=== PATIENT | female | born 1980 | race Caucasian/White ===

== ENCOUNTER 2016-10-07 17:18 | Emergency (ER) | payer SELFPAY ==
[~2016-10-07 17:18] MED LIST: CLIN150C14 PO; DIPH25CA58 IV; DOCU-109 PO; ENOX40DI SQ; FENTAN; IBUP800T19 PO; LORA0.5T96 PO; MUPI15CR TP; NICO1PAT21 TP; ONDA2VIA3 IV; PIPE3.375 IV; PROM25AM6 IV; SULF1TAB24 PO; VANC1PLA9 IV; [UNRECOGNIZED DRUG - CODE] IV; narcan IV
[2016-10-07 17:25] VITALS: BP 150/100
[2016-10-07] MEDS ORDERED: AMOX-260 PO (17:47)
--- NOTE | 2016-10-07 17:47 | PHYS DOC ---
Past History Past Medical History: Asthma Past Surgical History: Tonsillectomy, Other Alcohol Use: None Drug Use: Amphetamine, Marijuana, Methamphetamine, Opiates Adult General Chief Complaint Chief Complaint: EARACHE/EAR PAIN HPI HPI Patient is a 36-year-old female who presents ambulatory to the ED complaining of pain around her left ear and the left side of her jaw since yesterday. It hurts inside of her mouth and around her left ear, down into her left angle of her mandible area and the left anterior lateral neck. No fever or chills. No sore throat. She's not sure whether this might have started with a tooth. She also has some lesions of her face and some around her left ear specifically that she describes as "acne". They were not itchy. When they started they were red bumps and then had "white stuff" coming out of them. She has been picking at them. She's never had this before. No known allergies Review of Systems Review of Systems Constitutional: Denies fever or chills [] HENT: Denies nasal congestion or sore throat , otherwise as in history of present illness Integument: Facial skin lesions as in history of present illness, patient doesn' t know how long she's had them Allergies Allergies Allergies Coded Allergies Type Severity Reaction Last Updated Verified I S O L A T I O N *CONTACT* Allergy Unknown 10/11/15 Yes NKMA Allergy Unknown 10/11/15 Yes Physical Exam Physical Exam Constitutional: Well developed, well nourished, no acute distress, non-toxic appearance. Ambulatory, alert, mentating normally, no difficulty talking or swallowing. HENT: Normocephalic, atraumatic, numerous skin lesions on the forehead and around the hairline, worse on the left side, and scattered on the face, appeared to have been pimples that have been severely excoriated by the patient picking at them. None appears to be cellulitic or infected. There is tenderness generally in front of and around the left ear and down over the left angle of the jaw. No redness but there is mild swelling in this area. No palpable mass. Some tender submandibular lymphadenopathy. Intraorally, teeth are in reasonably good repair except one fractured molar on the mandible that the patient states is old. No evidence of acute dental abscess or other dental process on the maxillary or mandibular teeth. The parotid duct opening appears normal. The buccal surface on the left appears normal. Tongue, throat, oropharynx is without swelling, redness, or other abnormality. Left external ear, EAC, and TM are all normal. No evidence of otitis externa or media. Eyes: conjunctiva normal, no discharge. [] Neck: Normal range of motion, supple, no stridor. Mild tenderness of the left anterolateral neck due to cervical lymphadenopathy. No discrete individual large node. Skin: Warm, dry, no erythema, no rash. Facial skin as described. Extremities: No tenderness, no cyanosis, no clubbing, ROM intact, no edema. [] Neurologic: Alert and oriented X 3, normal motor function, normal sensory function, no focal deficits noted. [] EKG EKG [] Radiology/Procedures Radiology/Procedures [] Course & Med Decision Making Course & Med Decision Making Pertinent Labs and Imaging studies reviewed. (See chart for details) 36-year-old female with pain, tenderness, and mild swelling around her left ear and over the left lateral cheek, angle of the mandible, and down into her left anterolateral neck. There is mild swelling and tenderness but the area is really not red or warm. I am not finding any other focus of her symptoms other than numerous facial lesions that probably started as some type of an acne pimple about she has picked an excoriated them and I believe she has a early or mild soft tissue infection in this area although no overt cellulitis. We'll treat her with antibiotics. See instructions for plan. [] Dragon Disclaimer Dragon Disclaimer This chart was dictated in whole or in part using Voice Recognition software in a busy, high-work load, and often noisy Emergency Department environment. It may contain unintended and wholly unrecognized errors or omissions. Departure Departure: Impression: Primary Impression: Cellulitis Additional Impressions: Acneiform eruption Face pain Disposition: 01 HOME, SELF-CARE Condition: STABLE Referrals: PCP,NO (PCP) Patient Instructions: Cellulitis, [id number] Additional Instructions: I believe your pain and swelling is from some infection in the skin and lymph nodes from the "pimple" acne type lesions around your ear and face. Try to avoid picking or scratching the lesions. Use an [id number] acne wash to decrease the bacteria on your skin. If your swelling or pain gets worse, if you have a fever or chills, return to emergency. We will start you on amoxicillin, an antibiotic, that will take 2 or 3 days to start making it much better. Scripts Amoxicillin (AMOXICILLIN) 250 Mg Capsule 1 CAP PO TID for skin infection, swelling, #30 CAP Prov: ALICIA GEORGE MD 10/07/16 Problem Qualifiers ALICIA GEORGE MD Oct 07, 2016 17:47
[2016-10-07] MEDS ORDERED: AMOXICILLIN 250 MG CAPSULE PO ONE (18:30)
== END 2016-10-07 18:08 | disposition home or self-care (01) ==
LOC: ER 17:18
DX: L03.211 Cellulitis of face (principal); L27.0 Generalized skin eruption due to drugs and medicaments taken internally; J45.909 Unspecified asthma, uncomplicated; F15.10 Other stimulant abuse, uncomplicated; F12.10 Cannabis abuse, uncomplicated; F11.10 Opioid abuse, uncomplicated; Z91.041 Radiographic dye allergy status
CPT/HCPCS: 99283

== ENCOUNTER 2016-12-09 04:08 | Emergency (ER) | payer SELFPAY ==
[~2016-12-09] VITALS: Ht 162.6 cm; Wt 51.0 kg
[~2016-12-09 04:08] MED LIST changes: +AMOX-260 PO
[2016-12-09] MEDS ORDERED: ONDANSETRON PF 4 MG/2 ML VIAL. IV ONE (04:30)
[2016-12-09] MEDS ORDERED: KETOROLAC 30 MG/ML VIAL. IV ONE (04:30)
[2016-12-09] MEDS ORDERED: IV NORMAL SALINE 1,000ML 1,000 ML IV SCH (04:30)
[2016-12-09] MEDS ORDERED: HYDROmorphone PF 1 MG/ML DISP.SYRIN IM ONE (04:45)
[2016-12-09] MEDS ORDERED: KETOROLAC 60 MG/2 ML VIAL. IM ONE (04:45)
[2016-12-09 04:55] LABS: BASO # 0.1 x10^3/uL (0.0-0.2); BASO % 1 % (0-3); EOS % 0 % (0-3); HEMATOCRIT 45.9 % (36.0-47.0); HEMOGLOBIN 16.1 g/dL (12.0-15.5); LYMPH # 1.9 x10^3/uL (1.0-4.8); LYMPH % 18 % (24-48); MEAN CORPUSCULAR HEMOGLOBIN 30 pg (25-35); MEAN CORPUSCULAR HGB CONC 35 g/dL (31-37); MEAN CORPUSCULAR VOLUME 87 fL (79-100); MONO # 0.4 x10^3/uL (0.0-1.1); MONO % 4 % (0-9); NEUT % 77 % (31-73); PLATELET COUNT 288 x10^3/uL (140-400); RED BLOOD COUNT 5.31 x10^6/uL (3.50-5.40); RED CELL DISTRIBUTION WIDTH 13.3 % (11.5-14.5); WHITE BLOOD COUNT 10.4 x10^3/uL (4.0-11.0)
--- NOTE | 2016-12-09 04:59 | PHYS DOC ---
General Chief Complaint: ABDOMINAL PAIN Stated Complaint: ABDOMINAL PAIN Time Seen by MD: 04:12 Source: patient, old records Exam Limitations: clinical condition Problems: (LOCO CALVILLO DO) Time Seen by MD: 06:00 Problems: (PABLO KRUSE DO) History of Present Illness Initial Comments Pt is 36/F to ED via EMS c/o abdominal pain. Pt complains of severe right sided abdominal pain radiating to right flank. Pt writhing/screaming demanding pain medication, difficult historian appears altered c/w methamphetamine. Claims history of kidney stones says this feels like prior, right sided abdominal pain 10/10 sharp/severe with several episodes n/v. No reported diarrhea, no blood in emesis no fever/chills/CP/SOB/ diaphoresis. Pt denies substance abuse, EMS reports pt mother advised IVDU history and probable recent methamphetamine. She says she is having difficulty with producing urine denies dysuria/hematuria. Timing/Duration: 24 hours, constant Severity: severe Modifying Factors: improves with other Associated Symptoms: nausea/vomiting, other (LOCO CALVILLO DO) Allergies: Coded Allergies: I S O L A T I O N *CONTACT* (Verified Allergy, Unknown, 12/09/16) mrsa screen + NKMA (Verified Allergy, Unknown, 12/09/16) Past Medical History Medical History: asthma, other (septic PE, asthma, cellulitis, MRSA, septic joint, pneumonia, ) Surgical History: no surgical history, other (tonsillectomy, R knee) (LOCO CALVILLO DO) Family History Significant Family History: no pertinent family hx (LOCO CALVILLO DO) Social History Smoker: cigarettes Alcohol: occasionally Drugs: other (methamphetamine, opiates, THC, methadone, IVDU claims sobriety currently) (LOCO CALVILLO DO) Review of Systems Constitutional: denies chills, denies diaphoresis, denies fever, denies malaise Respiratory: denies cough, denies shortness of breath, denies wheezing Cardiovascular: denies chest pain, denies palpitations, denies syncope Gastrointestinal: abdominal pain, denies diarrhea, nausea, vomiting Genitourinary: see HPI Musculoskeletal: see HPI, denies joint swelling, denies neck pain Skin: see HPI Psychiatric/Neurological: denies headache, denies numbness, denies paresthesia , denies seizure, denies weakness Hematologic/Lymphatic: see HPI, denies easy bleeding, denies easy bruising ( LOCO CALVILLO DO) Physical Exam General Appearance: severe distress (appears older than stated age, writhing, screaming out, sobbing no diaphoresis/tears HR 70's), thin Eyes: bilateral eye normal inspection, bilateral eye PERRL, bilateral eye EOMI Ear, Nose, Throat: hearing grossly normal, normal ENT inspection (dry membranes ), normal pharynx Neck: non-tender, supple Respiratory: normal breath sounds, no respiratory distress Cardiovascular: normal peripheral pulses, regular rate, rhythm Gastrointestinal: soft (severe pain to light touch of skin globally, BS diminished no mass) Back: CVA tenderness (R), CVA tenderness (L) Extremities: normal range of motion, non-tender (track peterson), no pedal edema, no calf tenderness, pelvis stable Neurologic/Psychiatric: baccarat manager II-XII nml as tested, no motor/sensory deficits, alert, oriented x 3, other (screaming, uncooperative, no SI or obvious hallucinations) Skin: warm/dry (scabbed lesions b/l arms and face c/w meth, poor turgor) (LOCO CALVILLO DO) Orders, Labs, Meds Pt very difficult IV stick, initially dilaudid 1mg IM/toradol 60mg IM. At 0500 IV established, zofran 4mg/dilaudid 0.5mg IV given pt calms down somewhat. 0540: Pt now calm and sedated with meds VS remain stable. CT complete and pending, lab notifies that all submitted specimens hemolyzed and will have to be redrawn. Pt will be signed out to incoming ED physician at 0600 shift change , see that documentation for results/pt disposition. 0547: CBC resulted, WBC 10.4. UA 80 ket, 100mg/dl protein (LOCO CALVILLO DO) Orders, Labs, Meds 0625: Patient was seen and evaluated by myself. Patient was a sign out from Dr. Calvillo to follow up on CT scan and remaining blood work. Patient presented with severe abdominal pain with a history of drug abuse. Radiology findings: IMPRESSION: 1. No hydronephrosis. 2. Retrocecal appendix does not appear grossly dilated. There is some nonspecific haziness of the fat within the right lower quadrant the abdomen of unknown etiology but the appendix is not dilated to suggest appendicitis. 3. Cystic region within the right adnexa. Could be from causes such as dominant follicle or small cyst. 4. Subcutaneous induration of fat right flank posteriorly with some air within. Could be injection related or posttraumatic in nature. 5. Low-attenuation lesion of the right lobe of liver. Given the patient's age this is most likely benign in nature but if more complete characterization is desired focused ultrasound or MRI liver protocol could be obtained to further evaluate. MDM: After reviewing the chart, CC/HPI/PMH, physical exam, [lab results], [ radiological results], I do not believe the patient has an intra-abdominal emergency warranting further workup and/or admission at this time. Patient is made aware of the abnormal findings on CT scan and recommended follow-up with PCP for further evaluation of her liver and a colonoscopy. On reexamination patient's abdominal pain has subsided she is resting comfortably in the bed and was able to take Sprite and crackers. Patient is stable for discharge. Additional verbal discharge instructions were provided to the patient and that if symptoms get worse or any new symptoms arise that are worrisome to the patient she is to return to the emergency room immediately Diagnosis: 1. Abdominal pain (PABLO KRUSE DO) LOCO CALVILLO DO Dec 09, 2016 04:59 PABLO KRUSE DO Dec 09, 2016 06:59
[2016-12-09] MEDS ORDERED: HYDROmorphone PF 1 MG/ML DISP.SYRIN IV ONE (05:00)
[2016-12-09] MEDS ORDERED: cefTRIAXone SODIUM 1 GM VIAL IV ONE (05:05)
[2016-12-09] MEDS ORDERED: IV NORMAL SALINE 50ML 50 ML ONE (05:05)
[2016-12-09 05:18] LABS: AMORPHOUS SEDIMENT,UR PRESENT /HPF; BACTERIA,URINE FEW /HPF (0-FEW); BILIRUBIN,URINE NEG (NEG); CLARITY,URINE HAZY; COLOR,URINE STRAW; GLUCOSE,URINE NEG (NEG); HYALINE CASTS, URINE OCC /HPF; NITRITE,URINE NEG (NEG); RBC,URINE OCC /HPF (0-2); SQUAMOUS EPITHELIAL CELL,UR FEW /LPF; UROBILINOGEN,URINE 0.2 mg/dL (0.2 mg/dL); WBC,URINE OCC /HPF (0-4)
[2016-12-09 05:52] VITALS: BP 106/66
--- NOTE | 2016-12-09 05:59 | RAD ---
INDICATION: severe rt side pain COMPARISON: None. TECHNIQUE: Axial CT images were obtained through the abdomen and pelvis without intravenous contrast. Limited assessment of solid organ structures and vasculature secondary to lack of intravenous contrast. One or more of the following individualized dose reduction techniques were utilized for this examination: 1. Automated exposure control; 2. Adjustment of the mA and/or kV according to patient size; 3. Use of iterative reconstruction technique. FINDINGS: Chest Base: Partially imaged without gross abnormality. Vessels: No abdominal aortic aneurysm. Liver/Biliary: Approximately 17 mm low-attenuation lesion right lobe of the liver laterally. Pancreas: No peripancreatic edema. Spleen: Normal. Kidneys/Adrenal: No hydronephrosis. Bladder: Largely decompressed with catheter within. There is some air within the bladder likely from the indwelling catheter. GI: No free air. No bowel dilation to suggest obstruction. The suspected appendix is retrocecal and does not appear grossly enlarged. Small fat-containing umbilical hernia. There is some subcutaneous stranding and air seen at the right flank posteriorly, could be injection related or posttraumatic. Suspected cystic region right adnexa, 25 mm. Pars defects L5 with grade 1 anterolisthesis L5 on S1. IMPRESSION: 1. No hydronephrosis. 2. Retrocecal appendix does not appear grossly dilated. There is some nonspecific haziness of the fat within the right lower quadrant the abdomen of unknown etiology but the appendix is not dilated to suggest appendicitis. 3. Cystic region within the right adnexa. Could be from causes such as dominant follicle or small cyst. 4. Subcutaneous induration of fat right flank posteriorly with some air within. Could be injection related or posttraumatic in nature. 5. Low-attenuation lesion of the right lobe of liver. Given the patient's age this is most likely benign in nature but if more complete characterization is desired focused ultrasound or MRI liver protocol could be obtained to further evaluate. Electronically signed by: Chele Bowman MD (12/09/2016 5:56 AM) [facility]
[2016-12-09 06:29] LABS: BARBITURATES NEG (NEG); BENZODIAZEPINES POS (NEG); CANNABINOIDS POS (NEG); COCAINE NEG (NEG); METHADONE NEG (NEG); OPIATES POS (NEG); PHENCYCLIDINE NEG (NEG)
[2016-12-09 06:30] LABS: AMPHETAMINE/METHAMPHETAMINE POS (NEG)
[2016-12-09 07:15] LABS: ALBUMIN 3.4 g/dL (3.4-5.0); CALCIUM 8.3 mg/dL (8.5-10.1); CREATININE 0.8 mg/dL (0.6-1.0); GFR 81.6; POTASSIUM 3.8 mmol/L (3.5-5.1); TOTAL BILIRUBIN 0.2 mg/dL (0.2-1.0); TOTAL PROTEIN 6.9 g/dL (6.4-8.2)
[2016-12-10 03:38] LABS: HEMOGLOBIN ISTAT 12.9 gm/dL; POTASSIUM ISTAT 3.7 mmol/L (3.5-5.0)
== END 2016-12-09 08:05 | disposition home or self-care (01) ==
LOC: ER 04:08
DX: R10.9 Unspecified abdominal pain (principal); R11.2 Nausea with vomiting, unspecified; F17.210 Nicotine dependence, cigarettes, uncomplicated; J45.909 Unspecified asthma, uncomplicated; Z86.711 Personal history of pulmonary embolism; Z87.442 Personal history of urinary calculi; Z91.041 Radiographic dye allergy status
CPT/HCPCS: 36415; 74176; 80047; 80053; 80307; 81001; 83690; 85025; 96365; 96372; 96375; 99285; G0480; J0696; J1170; J1885; J2405; G0479; J7030

== ENCOUNTER 2018-07-12 16:12 | Emergency (ER) | payer OTHER ==
[~2018-07-12] VITALS: Ht 157.5 cm; Wt 49.9 kg
[2018-07-12] MEDS ORDERED: IV DEXTROSE 5% - 0.9 % NACL 1,000 ML IV ONE (16:45)
--- NOTE | 2018-07-12 16:53 | PHYS DOC ---
Past History Past Medical History: No Pertinent History (DENISE ADDISON DO) Past Surgical History: Tonsillectomy (DENISE ADDISON DO) Smoking: Cigarettes Alcohol Use: None Drug Use: Marijuana (DENISE ADDISON DO) Adult General Chief Complaint Chief Complaint: VOMITING IN HPI HPI Patient is a 38-year-old female presents with lower abdominal pain and vomiting that started last night. No blood in the emesis. No trauma. Patient is , uncertain as to her last menstrual period but it estimates at around 01 April 2018. She has had a positive test at department. She reports using marijuana last night/early this morning to help with the discomfort and the vomiting. She also reports that hot water helps with the discomfort. She denies any dysuria or hematuria. Denies any vaginal bleeding or discharge. Symptoms started when she was bearing down yesterday to have a bowel movement. No rectal bleeding is noted. Patient is 4 para 2012[] (DENISE ADDISON DO) Review of Systems Review of Systems Constitutional: Denies fever or chills [] Eyes: Denies change in visual acuity, redness, or eye pain [] HENT: Denies nasal congestion or sore throat [] Respiratory: Denies cough or shortness of breath [] Cardiovascular: No chest pain or palpitations[] GI: See history of present illness[] : Denies dysuria or hematuria [] Musculoskeletal: Denies back pain or joint pain [] Integument: Denies rash or skin lesions [] Neurologic: Denies headache, focal weakness or sensory changes [] Endocrine: Denies polyuria or polydipsia [] All other systems were reviewed and found to be within normal limits, except as documented in this note. (DENISE ADDISON DO) Current Medications Current Medications Current Medications Medications (Trade) Dose Ordered Sig/Eusebio Start Time Stop Time Status Last Admin Dose Admin Dextrose/Sodium Chloride 1,000 ml @ 0 mls/hr 1X ONCE 07/12/18 16:45 07/12/18 16:46 UNV Dicyclomine HCl (Bentyl) 20 mg 1X ONCE 07/12/18 16:45 07/12/18 16:46 UNV Metoclopramide HCl (Reglan Vial) 10 mg 1X ONCE 07/12/18 16:45 07/12/18 16:46 UNV ([facility]) Allergies Allergies Allergies Coded Allergies Type Severity Reaction Last Updated Verified I S O L A T I O N *CONTACT* Allergy Unknown 12/09/16 Yes NKMA Allergy Unknown 12/09/16 Yes ([facility]) Physical Exam Physical Exam Constitutional: Well developed, well nourished, mild to moderate discomfort, non-toxic appearance. [] HENT: Normocephalic, atraumatic, bilateral external ears normal, oropharynx moist, no oral exudates, nose normal. [] Eyes: PERRLA, EOMI, conjunctiva normal, no discharge. [] Neck: Normal range of motion, no tenderness, supple, no stridor. [] Cardiovascular:Heart rate regular rhythm, no murmur [] Lungs & Thorax: Bilateral breath sounds clear to auscultation [] Abdomen: Bowel sounds normal, soft, lower abdominal tenderness, no rebound, no guarding, no rigidity, able to sit up and lay back without any significant difficulty, no masses, no pulsatile masses. Pelvic exam performed with trigonometry tutor: External genitalia, [place]'s, urethra, and Bartholin's glands are all normal. Vaginal vault shows no blood in the vault. Cervix shows a parous os which is closed, no cervical motion tenderness, no discharge, no bleeding [] Skin: Warm, dry, no erythema, no rash. [] Back: No tenderness, no CVA tenderness. [] Extremities: No tenderness, no cyanosis, no clubbing, ROM intact, no edema. [] Neurologic: Alert and oriented X 3, normal motor function, normal sensory function, no focal deficits noted. [] Psychologic: Affect normal, judgement normal, mood normal. [] ([facility]) Current Patient Data Vital Signs Vital Signs Date Time Temp Pulse Resp B/P (MAP) Pulse Ox O2 Delivery O2 Flow Rate FiO2 07/12/18 16:12 98.3 88 24 100 Room Air ([facility]) EKG EKG [] ([facility]) Radiology/Procedures Radiology/Procedures [] ([facility]) Radiology/Procedures [address] [id number] IMAGING REPORT Signed PATIENT: SHUBHAM SHINYCE Bertin ACCOUNT: [id number] : 1980 LOCATION: ER AGE: 38 SEX: F EXAM STATUS: REG ER ORD. PHYSICIAN: DENISE ADDISON DO REASON: lower abdominal pain, PROCEDURE: OB <14 WKS Examination: OB <14 WKS History: Lower Abdominal Pain and vomiting in Comparison/Correlation: None Findings: OB ultrasound exam was performed. Marginal placental location is evident. Single living intrauterine gestation is present with heart rate of 175 bpm. No subchronic hemorrhage. No yolk sac seen. measurements include: Biparietal diameter: 2.1 cm corresponding to 13 weeks 2 days gestation. Femur length of 0.9 cm corresponding to 12 weeks 4 day gestation. Head circumference of 8 cm corresponding to 13 weeks 3 days. Abdominal circumference of 5.7 cm corresponding to 12 weeks 4 day. Age by 4 parameters corresponds to 13 weeks 0 day. EDC by average age is 12/27/2018. Gestational age by last menstrual period is 16 weeks 0 day. Cephalic index of 81.2. H/A ratio is 1.4. FL/BPD is 41.5. FL/ AC is 14.9. Normal quantity of amniotic fluid noted. Right adnexa is not visualized due to overlying bowel gas. Left ovary measures 3.3 cm x 3 x 1 cm x 2 cm. Cervical length of 3.5 cm is noted. IMPRESSION: Single living intrauterine gestation with ultrasound age of 13 weeks 0 days is 3 weeks less than age by last menstrual period. Correlate clinically. Placenta is at the margin of the cervical os. Electronically signed by: Aditya Vargas MD (07/12/2018 6:50 PM) [facility] (BROCK DOBBS MD) Course & Med Decision Making Course & Med Decision Making Pertinent Labs and Imaging studies reviewed. (See chart for details) ED course: Patient arrived, was placed in bed, and tolerated exam well. She was transported to ultrasound. She is currently in ultrasound is patient care is being endorsed to the oncoming night physician in the emergency department. Laboratory tests and imaging results are pending.[] (DENISE ADDISON DO) Course & Med Decision Making Re-exam= Resting comfortable. No ankle edema. DTR =2 patella and brachial. Denies hx of immunosuppression, IV drug use, STD's, Trauma. No recent intake bad food. No Travel. No specific ill contact -animal or human ect. Encourage pt. to stop smoking and illicit drug use. Pt. Nausea markedly improved prior discharge. Pt. to stay on clear fluids. x 24 hrs. Push fruit juices. Start vitamin or two [place] chewable with iron daily. No smoking or illicit drug use. Must follow up with OB at . US to day was sent to . Pt. must follow up pending cultures and labs. Impression: 1. Nausea / Vomiting- hyperemesis gravidarum 2. Anemia 12.8 hemoglobin 3. Elevated glucose 217 4. Elevated creatinine 1.6 5. Dehydration 6. Ultrasound= shows intrauterine fetus, heart rate 175 bpm- estimated 13 weeks. Estimated delivery 12-27-2018 (Sent to for follow up) 7. Marijuana, methamphetamine and tobacco use 8. Mother Blood type is A positive 9. Hx G4, T -3 Vag. delivery (BROCK DOBBS MD) Dragon Disclaimer Dragon Disclaimer This electronic medical record was generated, in whole or in part, using a voice recognition dictation system. (DENISE ADDISON DO) Departure Departure: Referrals: PCP,NO (PCP) Scripts Ondansetron Hcl (ZOFRAN) 8 Mg Tablet 8 MG PO qidp for active nausea and vomiting, #30 BOTTLE Prov: BROCK DOBBS MD 07/12/18 DENISE ADDISON DO Jul 12, 2018 16:53 BROCK DOBBS MD Jul 12, 2018 19:11
[2018-07-12 17:09] LABS: BARBITURATES NEG (NEG); BENZODIAZEPINES NEG (NEG); CANNABINOIDS POS (NEG); COCAINE NEG (NEG); METHADONE NEG (NEG); OPIATES NEG (NEG); PHENCYCLIDINE NEG (NEG)
[2018-07-12 17:11] LABS: BACTERIA,URINE FEW /HPF (0-FEW); BILIRUBIN,URINE NEG (NEG); CLARITY,URINE HAZY; COLOR,URINE YELLOW; GLUCOSE,URINE NEG (NEG); NITRITE,URINE NEG (NEG); RBC,URINE RARE /HPF (0-2); SQUAMOUS EPITHELIAL CELL,UR OCC /LPF; UROBILINOGEN,URINE 0.2 mg/dL (0.2 mg/dL)
[2018-07-12 17:12] LABS: AMORPHOUS SEDIMENT,UR PRESENT /HPF; HYALINE CASTS, URINE OCC /HPF
[2018-07-12 17:14] LABS: AMPHETAMINE/METHAMPHETAMINE POS (NEG)
[2018-07-12] MEDS ORDERED: METOCLOPRAMIDE HCL 10 MG/2 ML VIAL. IV ONE (17:15)
[2018-07-12] MEDS ORDERED: DICYCLOMINE HCL 20 MG TABLET PO ONE (17:15)
[2018-07-12 17:25] LABS: U PREG PATIENT POSITIVE (NEG)
--- NOTE | 2018-07-12 18:53 | RAD ---
Examination: OB <14 WKS History: Lower Abdominal Pain and vomiting in Comparison/Correlation: None Findings: OB ultrasound exam was performed. Marginal placental location is evident. Single living intrauterine gestation is present with heart rate of 175 bpm. No subchronic hemorrhage. No yolk sac seen. measurements include: Biparietal diameter: 2.1 cm corresponding to 13 weeks 2 days gestation. Femur length of 0.9 cm corresponding to 12 weeks 4 day gestation. Head circumference of 8 cm corresponding to 13 weeks 3 days. Abdominal circumference of 5.7 cm corresponding to 12 weeks 4 day. Age by 4 parameters corresponds to 13 weeks 0 day. EDC by average age is 12/27/2018. Gestational age by last menstrual period is 16 weeks 0 day. Cephalic index of 81.2. H/A ratio is 1.4. FL/BPD is 41.5. FL/ AC is 14.9. Normal quantity of amniotic fluid noted. Right adnexa is not visualized due to overlying bowel gas. Left ovary measures 3.3 cm x 3 x 1 cm x 2 cm. Cervical length of 3.5 cm is noted. IMPRESSION: Single living intrauterine gestation with ultrasound age of 13 weeks 0 days is 3 weeks less than age by last menstrual period. Correlate clinically. Placenta is at the margin of the cervical os. Electronically signed by: Aditya Vargas MD (07/12/2018 6:50 PM) [facility]
[2018-07-12] MEDS ORDERED: IV RINGERS SOLUTION,LACTATED 1,000 ML IV ONE (19:00)
[2018-07-12 19:21] LABS: BASO % 0 % (0-3); EOS % 0 % (0-3); HEMATOCRIT 33.6 % (36.0-47.0); HEMOGLOBIN 11.4 g/dL (12.0-15.5); LYMPH # 1.8 x10^3/uL (1.0-4.8); LYMPH % 21 % (24-48); MEAN CORPUSCULAR HEMOGLOBIN 29 pg (25-35); MEAN CORPUSCULAR HGB CONC 34 g/dL (31-37); MEAN CORPUSCULAR VOLUME 86 fL (79-100); MONO # 0.5 x10^3/uL (0.0-1.1); MONO % 6 % (0-9); NEUT # 6.3 x10^3uL (1.8-7.7); NEUT % 73 % (31-73); PLATELET COUNT 336 x10^3/uL (140-400); RED BLOOD COUNT 3.89 x10^6/uL (3.50-5.40); RED CELL DISTRIBUTION WIDTH 13.4 % (11.5-14.5); WHITE BLOOD COUNT 8.7 x10^3/uL (4.0-11.0)
[2018-07-12 19:36] LABS: ALBUMIN 3.2 g/dL (3.4-5.0); ALBUMIN/GLOBULIN RATIO 0.8 (1.0-1.7); CALCIUM 8.7 mg/dL (8.5-10.1); CREATININE 0.6 mg/dL (0.6-1.0); GFR 112.5; TOTAL BILIRUBIN 0.3 mg/dL (0.2-1.0); TOTAL PROTEIN 7.2 g/dL (6.4-8.2)
[2018-07-12] MEDS ORDERED: ONDA8TAB9 PO (19:50)
[2018-07-12 20:03] VITALS: BP 108/83
[2018-07-12] MEDS ORDERED: MAGNESIUM HYDROXIDE 2,400 MG/30 ML ORAL.SUSP. PO ONE (20:15)
[2018-07-12] MEDS ORDERED: ONDANSETRON PF 4 MG/2 ML VIAL. IV ONE (20:15)
[2018-07-12] MEDS ORDERED: POTASSIUM CHLORIDE 20 MEQ/15 ML ORAL LIQUID. PO ONE (20:15)
== END 2018-07-12 20:30 | disposition home or self-care (01) ==
LOC: ER 16:12
DX: O21.1 Hyperemesis gravidarum with metabolic disturbance (principal); E86.0 Dehydration; R79.82 Elevated C-reactive protein (CRP); O99.810 Abnormal glucose complicating pregnancy; O99.011 Anemia complicating pregnancy, first trimester; O99.321 Drug use complicating pregnancy, first trimester; F12.10 Cannabis abuse, uncomplicated; F15.90 Other stimulant use, unspecified, uncomplicated; O99.331 Smoking (tobacco) complicating pregnancy, first trimester; Z3A.13 13 weeks gestation of pregnancy; Z91.041 Radiographic dye allergy status
CPT/HCPCS: 36415; 76801; 80053; 80307; 81001; 81025; 84702; 85025; 86900; 86901; 87491; 87591; 96361; 96374; 96375; 99285; J2405; J2765; J7042; J7120; Q0111

== ENCOUNTER 2018-08-02 15:27 | Emergency (ER) | payer OTHER ==
[~2018-08-02] VITALS: Ht 157.5 cm; Wt 50.8 kg
[~2018-08-02 15:27] MED LIST changes: +ONDA8TAB9 PO
[2018-08-02 15:39] VITALS: BP 112/80
[2018-08-02] MEDS ORDERED: AMOX1TAB61 PO (15:58)
[2018-08-02] MEDS ORDERED: TRIA15CR2 TP (15:58)
--- NOTE | 2018-08-02 15:59 | PHYS DOC ---
Past History Past Medical History: No Pertinent History Past Surgical History: Tonsillectomy Smoking: Cigarettes Alcohol Use: Occasionally Drug Use: Marijuana Adult General Chief Complaint Chief Complaint: INSECT BITE [facility] HPI 38-year-old female presents with insect bite on her right shoulder and rash on her hands and feet. The patient noticed the rash yesterday. It is erythematous and pruritic on her hands and feet. The patient admits to falling asleep in the [place] yesterday. She does not believe she came in contact with poison sola or similar complaint, but is not certain. The rash is only on her hands and feet. She also noticed an insect bite on her posterior right shoulder. She is con cerned about infection. The patient is several weeks . She denies fever or chills. Review of Systems Review of Systems Constitutional: Denies fever or chills [] Eyes: Denies change in visual acuity, redness, or eye pain [] HENT: Denies nasal congestion or sore throat [] Respiratory: Denies cough or shortness of breath [] Cardiovascular: No additional information not addressed in HPI [] GI: Denies abdominal pain, nausea, vomiting, bloody stools or diarrhea [] : Denies dysuria or hematuria [] Musculoskeletal: Denies back pain or joint pain [] Integument: Rash, insect bite[] Neurologic: Denies headache, focal weakness or sensory changes [] Endocrine: Denies polyuria or polydipsia [] All other systems were reviewed and found to be within normal limits, except as documented in this note. Allergies Allergies Allergies Coded Allergies Type Severity Reaction Last Updated Verified I S O L A T I O N *CONTACT* Allergy Unknown 12/09/16 Yes NKMA Allergy Unknown 12/09/16 Yes Physical Exam Physical Exam Constitutional: Well developed, well nourished, no acute distress, non-toxic appearance. [] HENT: Normocephalic, atraumatic, bilateral external ears normal, oropharynx moist, no oral exudates, nose normal. [] Eyes: PERRLA, EOMI, conjunctiva normal, no discharge. [] Neck: Normal range of motion, no tenderness, supple, no stridor. [] Cardiovascular:Heart rate regular rhythm, no murmur [] Lungs & Thorax: Bilateral breath sounds clear to auscultation [] Abdomen: Bowel sounds normal, soft, no tenderness, no masses, no pulsatile masses. [] Skin: Fine, erythematous rash on the bilateral hands and dorsal feet. It is not hot to the touch. It appears consistent with contact dermatitis. Right, posterior shoulder with central scab with surrounding erythema of 3 cm diameter. No area of fluctuance[] Back: No tenderness, no CVA tenderness. [] Extremities: No tenderness, no cyanosis, no clubbing, ROM intact, no edema. [] Neurologic: Alert and oriented X 3, normal motor function, normal sensory function, no focal deficits noted. [] Psychologic: Affect normal, judgement normal, mood normal. [] EKG EKG [] Radiology/Procedures Radiology/Procedures [] Course & Med Decision Making Course & Med Decision Making Pertinent Labs and Imaging studies reviewed. (See chart for details) The patient's hands and feet appear to be some sort of contact dermatitis. Given her , I will only prescribe a topical steroid. The place on her back appears to be an insect bite it is erythematous, but not especially warm to touch. I will cover her with Augmentin just to be sure. [] Dragon Disclaimer Dragon Disclaimer This electronic medical record was generated, in whole or in part, using a voice recognition dictation system. Departure Departure: Impression: Primary Impression: Contact dermatitis Additional Impression: Cellulitis of back Disposition: 01 HOME, SELF-CARE Condition: STABLE Referrals: PCP,NO (PCP) Patient Instructions: Cellulitis, [id number], Contact Dermatitis, Bjiy-[id number] Scripts Triamcinolone Acetonide (TRIAMCINOLONE ACETONIDE) 15 Gm Cream..g. 1 KULDEEP TP BID PRN for ITCHING, #30 GM Apply to effected skin 2 times a day for up to 7 days, then stop. Prov: MARCELO LITTLEJOHN DO 08/02/18 Amoxicillin/Potassium Clav (AUGMENTIN 875-125 TABLET) 1 Each Tablet 1 TAB PO BID for cellulitis, #14 TAB Prov: MARCELO LITTLEJOHN DO 08/02/18 Problem Qualifiers Primary Impression: Contact dermatitis Contact dermatitis type: irritant Contact dermatitis trigger: unspecified trigger Qualified Codes: L24.9 - Irritant contact dermatitis, unspecified cause MARCELO LITTLEJOHN DO August 02, 2018 15:59
== END 2018-08-02 16:04 | disposition home or self-care (01) ==
LOC: ER 15:27
DX: O9A.211 Injury, poisoning and certain other consequences of external causes complicating pregnancy, first trimester (principal); S40.261A Insect bite (nonvenomous) of right shoulder, initial encounter; S60.562A Insect bite (nonvenomous) of left hand, initial encounter; S60.561A Insect bite (nonvenomous) of right hand, initial encounter; S90.862A Insect bite (nonvenomous), left foot, initial encounter; S90.861A Insect bite (nonvenomous), right foot, initial encounter; O99.711 Diseases of the skin and subcutaneous tissue complicating pregnancy, first trimester; L03.312 Cellulitis of back [any part except buttock and flank]; L25.9 Unspecified contact dermatitis, unspecified cause; O99.331 Smoking (tobacco) complicating pregnancy, first trimester; Z3A.00 Weeks of gestation of pregnancy not specified; Z91.041 Radiographic dye allergy status; W57.XXXA Bitten or stung by nonvenomous insect and other nonvenomous arthropods, initial encounter; Y93.89 Activity, other specified; Y92.89 Other specified places as the place of occurrence of the external cause; Y99.8 Other external cause status
CPT/HCPCS: 99283

== ENCOUNTER 2018-08-06 18:36 | Emergency (ER) | payer OTHER ==
[~2018-08-06] VITALS: Ht 157.5 cm; Wt 52.0 kg
[~2018-08-06 18:36] MED LIST changes: +AMOX1TAB61 PO; +TRIA15CR2 TP
[2018-08-06 18:40] VITALS: BP 122/68
--- NOTE | 2018-08-06 18:47 | ED.ADGEN ---
Past History Past Medical History: No Pertinent History Past Surgical History: Tonsillectomy Smoking: Cigarettes Alcohol Use: None Drug Use: Marijuana Adult General Chief Complaint Chief Complaint ".. I got this spider bite... and all ready on Augmentin.. but it is not getting better.. I was here Sat... and I am also .. HPI HPI Patient is a 38 year old female who presents with above hx and complaints of cellulitis and possible spider bite Rt. shoulder. Pt. currently on Augmentin. Pt. also . Patient has a long area of cellulitis/skin breakdown with Center necrosis 2 x 8 cm erythema. No adenopathy. Patient denies any history mental suppression does have a history of hepatitis C. Patient is on vitamins. Patient does continue to smoke. Patient does not follow-up primary care. Patient has had a tetanus vaccination within 10 years. Patient is concerned that she needs antivenom based on her review of Internet cases of brown recluse spider bites. Patient has had suspect MRSA in the past. Patient had 2 previous pregnancies and deliveries one is 15 years old and one is 19 years old. Review of Systems Review of Systems Constitutional: Denies fever or chills [] Eyes: Denies change in visual acuity, redness, or eye pain [] HENT: Denies nasal congestion or sore throat [] Respiratory: Denies cough or shortness of breath [] Cardiovascular: No additional information not addressed in HPI [] GI: Denies abdominal pain, nausea, vomiting, bloody stools or diarrhea [] : Denies dysuria or hematuria [] Musculoskeletal: Denies back pain or joint pain [] Integument: Requesting recheck of area cellulitis/spider bite Neurologic: Denies headache, focal weakness or sensory changes [] Endocrine: Denies polyuria or polydipsia [] All other systems were reviewed and found to be within normal limits, except as documented in this note. Family History Family History Noncontributory Current Medications Current Medications See nursing for home meds Allergies Allergies Allergies Coded Allergies Type Severity Reaction Last Updated Verified I S O L A T I O N *CONTACT* Allergy Unknown 12/09/16 Yes NKMA Allergy Unknown 12/09/16 Yes Physical Exam Physical Exam Constitutional: no acute distress, non-toxic appearance. [] HENT: Normocephalic, atraumatic, bilateral external ears normal, oropharynx moist, no oral exudates, nose normal. [] Eyes: PERRLA, EOMI, conjunctiva normal, no discharge. [] Neck: Normal range of motion, no tenderness, supple, no stridor. [] Cardiovascular:Heart rate regular rhythm, no murmur [] Lungs & Thorax: Bilateral breath sounds equal apex with scattered wheezes on auscultation [] Abdomen: Bowel sounds normal, soft, no tenderness, no masses, no pulsatile masses. [] Skin: Warm, dry, no erythema, no rash. Except area of cellulitis/spider bite right shoulder blade as per history of present illness Back: No tenderness, no CVA tenderness. [] Extremities: No tenderness, no cyanosis, no clubbing, ROM intact, no edema. [] Neurologic: Alert and oriented X 3, normal motor function, normal sensory function, no focal deficits noted. [] Psychologic: Affect anxious, judgement normal, mood normal. [] Current Patient Data Vital Signs Vital Signs Date Time Temp Pulse Resp B/P (MAP) Pulse Ox O2 Delivery O2 Flow Rate FiO2 08/06/18 18:40 98.4 96 18 97 Room Air EKG EKG [] Radiology/Procedures Radiology/Procedures [] Course & Med Decision Making Course & Med Decision Making Pertinent Labs and Imaging studies reviewed. (See chart for details). Pt. offer labs for further eval. Pt. currently declines labs. Recommend patient stop using alcohol on lesion. Continue Benadryl as needed for itching. Massage Polysporin into site 4 times a day. Wash with soap and water. Follow-up primary care. Take only Tylenol for discomfort. Follow-up with [facility] OB. Continue vitamin. Stop smoking. Return if any concerns. Complete current antibiotics. [] Final Impression Final Impression 1. Skin[]-lesion cellulitis/spider bite 2. Smoking 3. Gravid Dragon Disclaimer Dragon Disclaimer This electronic medical record was generated, in whole or in part, using a voice recognition dictation system. Discharge Summary Visit Information Final Diagnosis Problems Medical Problems: (1) Cellulitis Status: Acute (2) Spider bite Status: Acute Brief Hospital Course Allergies Allergies Coded Allergies Type Severity Reaction Last Updated Verified I S O L A T I O N *CONTACT* Allergy Unknown 12/09/16 Yes NKMA Allergy Unknown 12/09/16 Yes Vital Signs Vital Signs Date Time Temp Pulse Resp B/P (MAP) Pulse Ox O2 Delivery O2 Flow Rate FiO2 08/06/18 18:40 98.4 96 18 97 Room Air Brief Hospital Course Ms. Granado is a 38 old female who presented with cellulitis and suspect spider bite. Discharge Information Condition at Discharge: Stable Disposition/Orders: D/C to Home Dischare Medications Active Scripts Active Triamcinolone Acetonide 15 Gm Cream..g. 1 Kelsie TP BID PRN Apply to effected skin 2 times a day for up to 7 days, then stop. Augmentin 875-125 Tablet (Amoxicillin/Potassium Clav) 1 Each Tablet 1 Tab PO BID Zofran (Ondansetron Hcl) 8 Mg Tablet 8 Mg PO QIDP Amoxicillin 250 Mg Capsule 1 Cap PO TID Ibuprofen 800 Mg Tablet 1 Tab PO TID Reported Vanco 1 Gram/250 ml-0.9% NaCl (Vancomycin/0.9 % Sod Chloride) 1 Gm/250 Ml Plast..bag 1 Gm IV Q8HRS Phenergan (Promethazine Hcl) 25 Mg/1 Ml Ampul 12.5 Mg IV Q6HRS PRN Zosyn 3.375 Gram Vial (Piperacillin Sodium/Tazobactam) 3.375 Gm Vial 3.375 Gm IV Q6HRS Zofran (Ondansetron Hcl) 2 Mg/1 Ml Vial 4 Mg IV Q8HRS PRN NICODERM CQ 21mg (Nicotine) 1 Each Patch.td24 1 Patch TP DAILY [narcan] 0.4 Mg IV Q2MIN PRN Bactroban (Mupirocin Calcium) 15 Gm Cream..g. 1 Kelsie TP BID Ativan (Lorazepam) 0.5 Mg Tablet 0.5 Mg PO Q4DAYS PRN Fentanyl 1,500 Mcg/30 ml Syr (Fentanyl Citrate/Pf) 1,500 Mcg/30 Ml Magnet Valve Assembler.syring 600 Mcg IV CONT 600mcg/ 30ML Syringe Settings 10mcg/10 min with a max of 400 MCG in 4 hours [Fentan] Lovenox (Enoxaparin Sodium) 40 Mg/0.4 Ml Disp.syrin 40 Mg SQ DAILY Colace (Docusate Sodium) 100 Mg Capsule 100 Mg PO BID Benadryl (Diphenhydramine Hcl) 25 Mg Capsule 25 Mg IV Q6HRS Xuan Disclaimer This chart was dictated in whole or in part using Voice Recognition software in a busy, high-work load, and often noisy Emergency Department environment. It may contain unintended and wholly unrecognized errors or omissions. BROCK DOBBS MD August 06, 2018 18:47
== END 2018-08-06 19:22 | disposition home or self-care (01) ==
LOC: ER 18:36
DX: O99.719 Diseases of the skin and subcutaneous tissue complicating pregnancy, unspecified trimester (principal); T63.301A Toxic effect of unspecified spider venom, accidental (unintentional), initial encounter; L03.113 Cellulitis of right upper limb; O99.330 Smoking (tobacco) complicating pregnancy, unspecified trimester; Z91.041 Radiographic dye allergy status; Z3A.00 Weeks of gestation of pregnancy not specified; Y92.89 Other specified places as the place of occurrence of the external cause
CPT/HCPCS: 99281

== ENCOUNTER 2018-09-08 23:58 | Emergency (ER) | payer OTHER ==
[~2018-09-08] VITALS: Ht 157.5 cm; Wt 53.6 kg
--- NOTE | 2018-09-09 00:42 | ED.ADGEN ---
Past History Past Medical History: Other Past Surgical History: Tonsillectomy Smoking: Cigarettes Alcohol Use: None Drug Use: Marijuana Adult General Chief Complaint Chief Complaint Concern for STD exposure HPI HPI Patient is a 38-year-old female estimated 20 weeks gestation who presents with concern for possible STD exposure from boyfriend. Patient reports white discharge, itching and genitals. Patient has been tested during and has been negative for STDs but was diagnosed with folliculitis of her pubic region. Patient complains of malodor. No abdominal pain cramping, fever chills, nausea vomiting or sweats. [] Review of Systems Review of Systems Review symptoms as per history of present illness. All other systems were reviewed and found to be within normal limits, except as documented in this note. Current Medications Current Medications Current Medications Medications (Trade) Dose Ordered Sig/Eusebio Start Time Stop Time Status Last Admin Dose Admin Azithromycin (Zithromax) 1,000 mg 1X ONCE 09/09/18 01:00 09/09/18 01:01 Ceftriaxone Sodium (Rocephin Im) 250 mg 1X ONCE 09/09/18 01:00 09/09/18 01:01 Allergies Allergies Allergies Coded Allergies Type Severity Reaction Last Updated Verified I S O L A T I O N *CONTACT* Allergy Unknown 12/09/16 Yes NKMA Allergy Unknown 12/09/16 Yes Physical Exam Physical Exam Constitutional: Well developed, well nourished, no acute distress, non-toxic appearance. [] HENT: Normocephalic, atraumatic, bilateral external ears normal, oropharynx moist, no oral exudates, nose normal. [] Eyes: PERRLA, EOMI, conjunctiva normal, no discharge. [] Neck: Normal range of motion, no tenderness, supple, no stridor. [] Cardiovascular:Heart rate regular rhythm, no murmur [] Lungs & Thorax: Bilateral breath sounds clear to auscultation [] Abdomen: Bowel sounds normal, soft, no tenderness. [] Skin: Warm, dry, no erythema, no rash. [] Neurologic: Alert and oriented X 3, normal motor function, normal sensory function, no focal deficits noted. [] Psychologic: Affect normal, judgement normal, mood normal. [] EKG EKG [] Radiology/Procedures Radiology/Procedures [] Course & Med Decision Making Course & Med Decision Making Pertinent Labs and Imaging studies reviewed. (See chart for details) [Patient has follow-up appointment tomorrow with her CONTROL SYSTEMS TECHNICIAN. Rocephin, Zithromax given. UA to be run with microscopy for evaluation of bacterial vaginosis.] Final Impression Final Impression [1, STD exposure 2. Second trimester ] Dragon Disclaimer Dragon Disclaimer This electronic medical record was generated, in whole or in part, using a voice recognition dictation system. MARCELO GALARZA DO Sep 09, 2018 00:42
[2018-09-09] MEDS ORDERED: AZITHROMYCIN 250 MG TABLET. PO ONE (01:00)
[2018-09-09] MEDS ORDERED: cefTRIAXone IM 250 MG VIAL IM ONE (01:00)
[2018-09-09 01:13] LABS: BACTERIA,URINE FEW /HPF (0-FEW); BILIRUBIN,URINE NEG (NEG); CLARITY,URINE CLEAR; COLOR,URINE YELLOW; GLUCOSE,URINE NEG (NEG); NITRITE,URINE NEG (NEG); RBC,URINE 0 /HPF (0-2); SQUAMOUS EPITHELIAL CELL,UR MOD /LPF; UROBILINOGEN,URINE 1 mg/dL (0.2 mg/dL)
[2018-09-09 03:04] VITALS: BP 133/93
== END 2018-09-09 01:09 | disposition home or self-care (01) ==
LOC: ER 23:58
DX: O98.312 Other infections with a predominantly sexual mode of transmission complicating pregnancy, second trimester (principal); O99.332 Smoking (tobacco) complicating pregnancy, second trimester; Z91.041 Radiographic dye allergy status; Z3A.20 20 weeks gestation of pregnancy
CPT/HCPCS: 81001; 87086; 96372; 99284; J0456; J0696

== ENCOUNTER 2018-11-10 14:23 | Emergency (ER) | payer MEDICAID, OTHER ==
[~2018-11-10] VITALS: Ht 157.5 cm; Wt 54.4 kg
--- NOTE | 2018-11-10 15:11 | PHYS DOC ---
Past History Past Medical History: No Pertinent History Past Surgical History: No Surgical History Smoking: Cigarettes Alcohol Use: None Drug Use: Marijuana Adult General Chief Complaint Chief Complaint: SKIN RASH/ABSCESS [facility] Patient is a 38-year-old female who presents with complaint of itching and rash all over. Patient states that rash is been present for the last couple of weeks and she is not sure what the caused the rashes. She states that she has taken some Benadryl but has not been helping. She also indicates that she has been noticing some bruising on her legs that she is not sure why it started. She denies any fever. Patient does admit to marijuana use and over a pack a day of tobacco use. She is 7 months . She denies any abdominal pain/cramping and also denies vaginal bleeding.[] Review of Systems Review of Systems Constitutional: Denies fever or chills [] Respiratory: Denies cough or shortness of breath [] Cardiovascular: No additional information not addressed in HPI [] GI: Denies abdominal pain, nausea, vomiting or diarrhea [] Integument: Positive rash.[] Allergies Allergies Allergies Coded Allergies Type Severity Reaction Last Updated Verified I S O L A T I O N *CONTACT* Allergy Unknown 12/09/16 Yes NKMA Allergy Unknown 12/09/16 Yes Physical Exam Physical Exam Constitutional: Well developed, well nourished, no acute distress, non-toxic appearance. [] Cardiovascular:Heart rate regular rhythm, no murmur [] Lungs & Thorax: Bilateral breath sounds clear to auscultation [] Skin: Diffuse rash with raised, erythematous lesions with numerous excoriations from scratching. [] Current Patient Data Vital Signs Vital Signs Date Time Temp Pulse Resp B/P (MAP) Pulse Ox O2 Delivery O2 Flow Rate FiO2 11/10/18 14:51 98.2 105 24 97 Room Air EKG EKG [] Radiology/Procedures Radiology/Procedures [] Course & Med Decision Making Course & Med Decision Making Pertinent Labs and Imaging studies reviewed. (See chart for details) Dragon Disclaimer Dragon Disclaimer This electronic medical record was generated, in whole or in part, using a voice recognition dictation system. Departure Departure: Impression: Primary Impression: Methamphetamine abuse Additional Impressions: Rash and nonspecific skin eruption Disposition: 01 HOME, SELF-CARE Condition: STABLE Referrals: PCP,NO (PCP) Patient Instructions: Methamphetamine Abuse, Complications, , Rash Scripts Cephalexin (KEFLEX) 500 Mg Capsule 500 MG PO TID for infection, #30 TAB Prov: RAMON OCAMPO Jr. DO 11/10/18 Problem Qualifiers Additional Impressions: Weeks of gestation: unspecified Qualified Codes: Z34.90 - Encounter for supervision of normal , unspecified, unspecified trimester RAMON OCAMPO Jr. DO Nov 10, 2018 15:11
[2018-11-10] MEDS ORDERED: DEXAMETHASONE SOD PHOS 10 MG/ML VIAL ONE (15:20)
[2018-11-10] MEDS ORDERED: DEXAMETHASONE SOD PHOS 10 MG/ML VIAL IM ONE (15:30)
[2018-11-10 15:31] LABS: BASO % 1 % (0-3); EOS # 0.1 x10^3/uL (0.0-0.7); EOS % 1 % (0-3); HEMATOCRIT 35.5 % (36.0-47.0); HEMOGLOBIN 12.3 g/dL (12.0-15.5); LYMPH # 1.7 x10^3/uL (1.0-4.8); LYMPH % 25 % (24-48); MEAN CORPUSCULAR HEMOGLOBIN 32 pg (25-35); MEAN CORPUSCULAR HGB CONC 35 g/dL (31-37); MEAN CORPUSCULAR VOLUME 93 fL (79-100); MONO # 0.4 x10^3/uL (0.0-1.1); MONO % 6 % (0-9); NEUT # 4.7 x10^3uL (1.8-7.7); NEUT % 67 % (31-73); PLATELET COUNT 313 x10^3/uL (140-400); RED BLOOD COUNT 3.82 x10^6/uL (3.50-5.40); RED CELL DISTRIBUTION WIDTH 13.2 % (11.5-14.5); WHITE BLOOD COUNT 6.9 x10^3/uL (4.0-11.0)
[2018-11-10 15:44] LABS: ALBUMIN/GLOBULIN RATIO 0.6 (1.0-1.7); CALCIUM 8.7 mg/dL (8.5-10.1); CREATININE 0.8 mg/dL (0.6-1.0); GFR 80.7; POTASSIUM 3.5 mmol/L (3.5-5.1); TOTAL BILIRUBIN 0.4 mg/dL (0.2-1.0); TOTAL PROTEIN 7.8 g/dL (6.4-8.2)
[2018-11-10] MEDS ORDERED: diphenhydrAMINE HCL 25 MG CAPSULE PO ONE (16:15)
[2018-11-10 16:41] LABS: BARBITURATES NEG (NEG); BENZODIAZEPINES NEG (NEG); CANNABINOIDS POS (NEG); COCAINE NEG (NEG); METHADONE NEG (NEG); OPIATES NEG (NEG); PHENCYCLIDINE NEG (NEG)
[2018-11-10 16:43] LABS: AMPHETAMINE/METHAMPHETAMINE POS (NEG)
[2018-11-10 16:58] LABS: BACTERIA,URINE 0 /HPF (0-FEW); BILIRUBIN,URINE NEG (NEG); CLARITY,URINE CLEAR; COLOR,URINE YELLOW; GLUCOSE,URINE NEG (NEG); NITRITE,URINE NEG (NEG); RBC,URINE 0 /HPF (0-2); SQUAMOUS EPITHELIAL CELL,UR OCC /LPF; UROBILINOGEN,URINE 1 mg/dL (0.2 mg/dL); WBC,URINE OCC /HPF (0-4)
[2018-11-10] MEDS ORDERED: CEPH-264 PO (17:21)
[2018-11-10 17:29] VITALS: BP 150/89
== END 2018-11-10 17:30 | disposition home or self-care (01) ==
LOC: ER 14:23
DX: O99.713 Diseases of the skin and subcutaneous tissue complicating pregnancy, third trimester (principal); R21 Rash and other nonspecific skin eruption; O99.323 Drug use complicating pregnancy, third trimester; F15.10 Other stimulant abuse, uncomplicated; O99.333 Smoking (tobacco) complicating pregnancy, third trimester; Z91.041 Radiographic dye allergy status; Z3A.00 Weeks of gestation of pregnancy not specified
CPT/HCPCS: 36415; 80053; 80307; 81001; 85025; 96372; 99284; J1100; Q0163

== ENCOUNTER 2018-11-28 03:18 | Emergency (ER) | payer MEDICAID ==
[~2018-11-28] VITALS: Ht 157.5 cm; Wt 53.6 kg
[~2018-11-28 03:18] MED LIST changes: +CEPH-264 PO
[2018-11-28 03:20] VITALS: BP 131/83
[2018-11-28] MEDS ORDERED: PRED20TA PO (03:44)
[2018-11-28] MEDS ORDERED: PERM60CR12 TP (03:44)
--- NOTE | 2018-11-28 03:45 | PHYS DOC ---
Past History Past Medical History: MRSA, STD Past Surgical History: Tonsillectomy Smoking: Cigarettes Alcohol Use: None Drug Use: Amphetamine, Cocaine, Heroin, Marijuana, Methamphetamine, Opiates Adult General Chief Complaint Chief Complaint: SKIN RASH/ABSCESS HPI HPI patient is a 38-year-old female, with a history of polysubstance abuse, who is approximately 8 months , presents to the emergency department for evaluation of diffuse pruritus, which has been present for the past month. She denies any focal rash. She has tried Benadryl without improvement. She was seen in the emergency department about 3 weeks ago, had labs done which were reviewed, and was given an antibiotic, Keflex, without improvement in her symptoms. The man she shares a bedroom with does not have similar symptoms. There are no alleviating or exacerbating factors to her symptoms otherwise. She has also tried numerous [id number] creams without improvement in her symptoms. Review of Systems Review of Systems Constitutional: Denies fever or chills [] GI: Denies abdominal pain, nausea, vomiting, bloody stools or diarrhea [] : Denies dysuria or hematuria . Reports positive movement, denies vaginal bleeding or discharge.[] Musculoskeletal: Denies back pain or joint pain [] Integument: As per history of present illness[] Neurologic: Denies headache, focal weakness or sensory changes [] Endocrine: Denies polyuria or polydipsia [] Allergies Allergies Allergies Coded Allergies Type Severity Reaction Last Updated Verified I S O L A T I O N *CONTACT* Allergy Unknown 12/09/16 Yes NKMA Allergy Unknown 12/09/16 Yes Physical Exam Physical Exam PHYSICAL EXAM: CONSTITUTIONAL: Well developed, well nourished HEAD: normocephalic, atraumatic EENT: PERRL, EOMI. Conjunctivae normal color, sclerae non-icteric; moist mucous membranes. NECK: Supple, non-tender; no meningismus. LUNGS: Lungs CTA, breathing even and unlabored. Normal air movement. HEART: Regular rate and rhythm, no murmur CHEST: No deformity; non-tender ABDOMEN: The abdomen is soft, and non-tender, no masses or bruits. EXTREM: Normal ROM; no deformity, no calf tenderness. Normal pulses palpable in all extremities. There is no pedal edema. SKIN: There are a few scattered pustular lesions on the skin, there is diffuse pruritus, without any focal rash at the areas being scratched at this point, no diaphoresis NEURO: Alert; normal speech and cognition; CN's grossly intact; strength grossly intact without focal deficit. BACK: No CVA TTP. Current Patient Data Vital Signs Vital Signs Date Time Temp Pulse Resp B/P (MAP) Pulse Ox O2 Delivery O2 Flow Rate FiO2 11/28/18 03:20 98.2 94 18 98 Room Air EKG EKG [] Radiology/Procedures Radiology/Procedures [] Course & Med Decision Making Course & Med Decision Making I discussed the uncertain etiology of the patient's symptoms, we discussed trial of the scabicide, the need for follow-up with her OB, she has an appointment scheduled Saturday, and return precautions in detail. I will also try a brief course of steroids. Dragon Disclaimer Dragon Disclaimer This electronic medical record was generated, in whole or in part, using a voice recognition dictation system. Departure Departure: Impression: Primary Impression: Pruritus Additional Impression: Disposition: HOME, SELF-CARE Condition: STABLE Referrals: PCP,NO (PCP) Patient Instructions: Pruritus Scripts Permethrin (PERMETHRIN) 60 Gm Cream..g. 1 KULDEEP TP ONCE for -, #60 GM 1 Refill Prov: PEARL FAIR MD 11/28/18 Prednisone (PREDNISONE) 20 Mg Tablet 40 MG PO DAILY for - for 4 Days, #8 TAB Prov: PEARL FAIR MD 11/28/18 Problem Qualifiers PEALR FAIR MD Nov 28, 2018 03:45
[2018-11-28] MEDS ORDERED: predniSONE 20 MG TABLET PO ONE (04:00)
== END 2018-11-28 03:52 | disposition home or self-care (01) ==
LOC: ER 03:18
DX: O99.713 Diseases of the skin and subcutaneous tissue complicating pregnancy, third trimester (principal); L29.9 Pruritus, unspecified; L98.8 Other specified disorders of the skin and subcutaneous tissue; O99.333 Smoking (tobacco) complicating pregnancy, third trimester; Z91.041 Radiographic dye allergy status; Z3A.00 Weeks of gestation of pregnancy not specified
CPT/HCPCS: 99283; J7512

== ENCOUNTER 2019-10-03 15:57 | Emergency (ER) | payer SELFPAY ==
[~2019-10-03] VITALS: Ht 157.5 cm; Wt 53.6 kg
[~2019-10-03 15:57] MED LIST changes: +LORA0.5T21 PO; -LORA0.5T96 PO; +PERM60CR12 TP; +PRED20TA PO
[2019-10-03] MEDS ORDERED: cefTRIAXone IM 250 MG VIAL IM ONE (16:45)
[2019-10-03] MEDS ORDERED: AZITHROMYCIN 250 MG TABLET. PO ONE (16:45)
[2019-10-03] MEDS ORDERED: DEXAMETHASONE 4 MG TABLET PO ONE (16:55)
[2019-10-03 17:14] LABS: BILIRUBIN,URINE NEG (NEG); CLARITY,URINE HAZY; COLOR,URINE YELLOW; GLUCOSE,URINE NEG (NEG); NITRITE,URINE NEG (NEG); UROBILINOGEN,URINE 0.2 mg/dL (0.2 mg/dL)
[2019-10-03 17:15] LABS: BACTERIA,URINE FEW /HPF (0-FEW); SQUAMOUS EPITHELIAL CELL,UR FEW /LPF
[2019-10-03 18:07] LABS: U PREG PATIENT NEGATIVE (NEG)
[2019-10-03 18:28] VITALS: BP 153/102
[2019-10-03] MEDS ORDERED: HYDR-3165 PO (18:36)
[2019-10-03] MEDS ORDERED: ACYC400T PO (18:36)
[2019-10-03] MEDS ORDERED: AMOX1TAB61 PO (18:36)
[2019-10-03] MEDS ORDERED: CHLO15MO2 PO (18:36)
[2019-10-03] MEDS ORDERED: METR500T PO (18:37)
--- NOTE | 2019-10-03 18:37 | PHYS DOC ---
Past History Past Medical History: Hypertension, Hepatitis, MRSA, STD Past Surgical History: Tonsillectomy Smoking: Cigarettes Alcohol Use: None Drug Use: Amphetamine, Cocaine, Heroin, Marijuana, Methamphetamine, Opiates General Adult EDM: Chief Complaint: MULTIPLE COMPLAINTS HPI: HPI: 39 year old female presents with reports of toothache with known dental caries and painful lesions to vaginal area which have been ongoing for last 2-3 months. Denies fever/chills. Reports concern for possible STD. Denies trauma. Denies dysuria or hematuria. Denies . Review of Systems: Review of Systems: Constitutional: Denies fever or chills Eyes: Denies change in visual acuity, redness, or eye pain HENT: Denies nasal congestion or sore throat; reports toothache Respiratory: Denies cough or shortness of breath Cardiovascular: Denies chest pain or palpitations GI: Denies abdominal pain, nausea, vomiting, or diarrhea : Denies dysuria or hematuria Musculoskeletal: Denies back pain or joint pain Integument: Reports painful vaginal skin lesions Neurologic: Denies headache, focal weakness or sensory changes Complete systems were reviewed and found to be within normal limits, except as documented in this note. Current Medications: Current Meds: Current Medications Medications (Trade) Dose Ordered Sig/Eusebio Start Time Stop Time Status Last Admin Dose Admin Azithromycin (Zithromax) 1,000 mg 1X ONCE 10/03/19 16:45 10/03/19 16:49 DC Ceftriaxone Sodium (Rocephin Im) 250 mg 1X ONCE 10/03/19 16:45 10/03/19 16:49 DC Dexamethasone (Decadron) 10 mg 1X ONCE 10/03/19 16:55 10/03/19 16:56 DC Allergies: Allergies: Allergies Coded Allergies Type Severity Reaction Last Updated Verified I S O L A T I O N *CONTACT* Allergy Unknown 12/09/16 Yes NKMA Allergy Unknown 12/09/16 Yes Physical Exam: PE: Constitutional: Well developed, well nourished, no acute distress, non-toxic appearance HENT: Normocephalic, atraumatic, poor dentition throughout, multiple dental caries noted, no drainable abscess appreciated Eyes: Conjunctiva normal, no discharge Neck: Normal range of motion, no tenderness, supple, no meningeal signs Lungs & Thorax: Equal chest rise and fall, no respiratory distress Abdomen: Soft, no tenderness Pelvic: Diesel Dinkey Operator RN, small ulcers noted to vaginal area which are tender to palpation, slight vaginal discharge noted which is white, no CMT, no adnexal ten derness Skin: Warm, dry, no erythema, perineal rash noted Back: No tenderness, no CVA tenderness Extremities: No tenderness, ROM intact, no edema Neurologic: Alert and oriented X 3, no focal deficits noted Psychologic: Affect normal, judgement normal Current Patient Data: Labs: Laboratory Tests Test 10/03/19 16:28 Urine Collection Type Unknown Urine Color Yellow Urine Clarity Hazy Urine pH 6.0 Urine Specific Model >=1.030 Urine Protein Neg (NEG-TRACE) Urine Glucose (UA) Neg mg/dL (NEG) Urine Ketones (Stick) Neg mg/dL (NEG) Urine Blood Neg (NEG) Urine Nitrite Neg (NEG) Urine Bilirubin Neg (NEG) Urine Urobilinogen Dipstick 0.2 mg/dL (0.2 mg/dL) Urine Leukocyte Esterase Neg (NEG) Urine RBC 1-2 /HPF (0-2) Urine WBC 1-4 /HPF (0-4) Urine Squamous Epithelial Cells Few /LPF Urine Bacteria Few /HPF (0-FEW) Urine Mucus Slight /LPF Urine Test Negative (NEG) EKG: EKG: [] Radiology/Procedures: Radiology/Procedures: [] Course & Med Decision Making: Course & Med Decision Making Pertinent Lab studies reviewed. (See chart for details) Patient presents with multiple complaints including dental caries/toothache, scalp sores, and vaginal sores. Reports some vaginal discharge. Pelvic exam performed. Chlamydia/Gonorrhea cultures pending. Empiric antibiotics given. HSV cultures also pending. Antiviral initiated. Wet mount positive for BV. Rx for flagyl given. UA without acute process. Upreg negative. Patient stable for discharge home with outpatient follow-up with PCP/dentist/FAMILY PRACTICE PHYSICIAN ASSISTANT. Discussed findings and plan with patient, who acknowledges understanding and agreement. Xuan Disclaimer: Xuan Disclaimer: This electronic medical record was generated, in whole or in part, using a voice recognition dictation system. Departure Departure: Impression: Primary Impression: Dental caries Additional Impressions: Herpetic vesicle in vagina Concern about sexually transmitted disease in female without diagnosis Disposition: 01 HOME/RESIDENCE PRIOR TO ADM Condition: STABLE Referrals: PCP,DOROTHY (PCP) Patient Instructions: Bacterial Vaginosis, [id number], Dental Caries, Genital Herpes, Toothache-Brief Scripts Metronidazole (FLAGYL) 500 Mg Tablet 1 TAB PO BID for Bacterial vaginitis, #14 TAB Prov: NICO CADE DO 10/03/19 Hydrocodone Bit/Acetaminophen (NORCO 5-325 TABLET) 1 Each Tablet 0.5-1 TAB PO Q6HRS PRN for PAIN, #8 TAB Prov: NICO CAED DO 10/03/19 Acyclovir (ACYCLOVIR) 400 Mg Tablet 1 TAB PO TID for Herpetic lesions, #30 TAB Prov: NICO CADE DO 10/03/19 Chlorhexidine Gluconate (PERIDEX) 15 Ml Mouthwash 15 ML PO BID for dental infection for 7 Days, #473 ML 0 Refills Prov: NICO CADE DO 10/03/19 Amoxicillin/Potassium Clav (AUGMENTIN 875-125 TABLET) 1 Each Tablet 1 TAB PO BID for Dental caries for 7 Days, #14 TAB 0 Refills Prov: NICO CADE DO 10/03/19 Justification of Admission: Justification of Admission: Justification of Admission Dx: N/A NICO CADE DO Oct 03, 2019 18:37
[2019-10-06 22:07] LABS: CHLAMYDIA PROBE Negative (Negative)
[2019-10-11 11:01] LABS: HERPES SIMPLEX TYPE 1 Negative
[2019-10-11 11:03] LABS: HERPES SIMPLEX TYPE 2 Negative
== END 2019-10-03 18:46 | disposition home or self-care (01) ==
LOC: ER 15:57
DX: K02.9 Dental caries, unspecified (principal); Z20.2 Contact with and (suspected) exposure to infections with a predominantly sexual mode of transmission; B00.89 Other herpesviral infection; I10 Essential (primary) hypertension; F17.210 Nicotine dependence, cigarettes, uncomplicated; Z86.14 Personal history of Methicillin resistant Staphylococcus aureus infection; Z88.8 Allergy status to other drugs, medicaments and biological substances
CPT/HCPCS: 36415; 81001; 81025; 87491; 87529; 87591; 96372; 99284; J0456; J0696; J8540; Q0111; 86695; 86696; 99283

== ENCOUNTER 2019-10-31 19:16 | Emergency (ER) | payer SELFPAY ==
[~2019-10-31] VITALS: Ht 160 cm; Wt 47.7 kg
[2019-10-31 19:16] VITALS: BP 146/103
[~2019-10-31 19:16] MED LIST changes: +ACYC400T PO; +CHLO15MO2 PO; +HYDR-3165 PO; +METR500T PO
[2019-10-31] MEDS ORDERED: cefTRIAXone IM 250 MG VIAL IM ONE (19:45)
[2019-10-31] MEDS ORDERED: AZITHROMYCIN 250 MG TABLET. PO ONE (19:45)
--- NOTE | 2019-10-31 20:07 | PHYS DOC ---
Past History Past Medical History: No Pertinent History Additional Past Medical Histor: Endocarditis Past Surgical History: No Surgical History Smoking: Cigarettes Alcohol Use: Heavy Drug Use: Amphetamine, Cocaine, Heroin, Marijuana, Methamphetamine, Opiates General Adult EDM: Chief Complaint: SEXUALLY TRANSMITTED DISEASE HPI: HPI: A 39-year-old female presents to the emergency department for a STI check. She was contacted by her sexual partner to come to the emergency department to be checked for gonorrhea and chlamydia and syphilis. She complains of vaginal murky mucopurulent discharge is been going on for over a month now, but it has never been completely treated. She she has been given antibiotics for this in the past by other doctors but feels like it is never been completely treated. She denies any dysuria, dyspareunia, pruritus, vaginal dryness. She also complains of purulent discharge from her right eye. She has had no known contact of body fluids in her right eye. She is monogamous with one sexual partner, but notes that sexual partner has sex with multiple other individuals. She denies any sores in her vaginal or anus. She does have a history of STIs, but has never been diagnosed with herpes simplex virus or HPV. Denies abdominal pain. Review of Systems: Review of Systems: Constitutional: Denies fever or chills Eyes: Reports right eye mucopurulent discharge and right eye pain HENT: Denies nasal congestion or sore throat Respiratory: Denies cough or shortness of breath Cardiovascular: Denies chest pain or palpitations GI: Denies abdominal pain, nausea, or vomiting : Denies dysuria or hematuria, reports mucopurulent vaginal discharge Musculoskeletal: Denies back pain or joint pain Integument: Denies rash or skin lesions Neurologic: Denies headache, focal weakness or sensory changes Complete systems were reviewed and found to be within normal limits, except as documented in this note. Current Medications: Current Meds: Current Medications Medications (Trade) Dose Ordered Sig/Eusebio Start Time Stop Time Status Last Admin Dose Admin Azithromycin (Zithromax) 1,000 mg 1X ONCE 10/31/19 19:45 10/31/19 19:46 DC Ceftriaxone Sodium (Rocephin Im) 250 mg 1X ONCE 10/31/19 19:45 10/31/19 19:46 DC Allergies: Allergies: Allergies Coded Allergies Type Severity Reaction Last Updated Verified I S O L A T I O N *CONTACT* Allergy Unknown 12/09/16 Yes NKMA Allergy Unknown 10/31/19 Yes Physical Exam: PE: Constitutional: Well developed, well nourished, no acute distress, non-toxic appearance HENT: Normocephalic, atraumatic, oropharynx moist Eyes: PERRL, EOMI, conjunctiva normal, no discharge Neck: Normal range of motion, no tenderness, supple Lungs & Thorax: S rise and fall is equal bilateral, no respiratory distress Abdomen: Soft, no tenderness Skin: Warm, dry, no erythema, no rash Back: No tenderness, no CVA tenderness Extremities: No tenderness, ROM intact, no edema Neurologic: Alert and oriented X 3, normal motor function, normal sensory function, no focal deficits noted Psychologic: Affect normal, judgment normal Current Patient Data: Vital Signs: Vital Signs Date Time Temp Pulse Resp B/P (MAP) Pulse Ox O2 Delivery O2 Flow Rate FiO2 10/31/19 19:16 98.0 97 16 146/103 (117) 98 Room Air EKG: EKG: [] Radiology/Procedures: Radiology/Procedures: [] Course & Med Decision Making: Course & Med Decision Making Pertinent Labs and Imaging studies reviewed. (See chart for details) [] Dragon Disclaimer: [employer] Disclaimer: This electronic medical record was generated, in whole or in part, using a voice recognition dictation system. Departure Departure: Impression: Primary Impression: Bacterial vaginitis Additional Impression: Conjunctivitis Qualified Codes: H10.31 - Unspecified acute conjunctivitis, right eye Disposition: HOME/RESIDENCE PRIOR TO ADM Condition: STABLE Referrals: PCP,NO (PCP) Patient Instructions: Conjunctivitis (Viral and Bacterial), Vaginitis, [id number] Scripts Erythromycin Base (Erythromycin) 1 Gm Oint...g. 0.25 INCH OP QID for Conjunctivitis, #1 TUBE Prov: NICO CADE DO 10/31/19 Metronidazole (FLAGYL) 500 Mg Tablet 1 TAB PO BID for Vaginitis, #14 TAB Prov: NICO CADE DO 10/31/19 Justification of Admission: Justification of Admission: Justification of Admission Dx: N/A NICO CADE DO Oct 31, 2019 20:07
[2019-10-31] MEDS ORDERED: ERYTHROMYCIN 0.5% OPHTH OINTMENT 1GM TUBE. OD ONE (20:15)
[2019-10-31 20:27] LABS: BACTERIA,URINE FEW /HPF (0-FEW); BILIRUBIN,URINE NEG (NEG); CLARITY,URINE CLEAR; COLOR,URINE YELLOW; GLUCOSE,URINE NEG (NEG); NITRITE,URINE NEG (NEG); SQUAMOUS EPITHELIAL CELL,UR MOD /LPF; UROBILINOGEN,URINE 0.2 mg/dL (0.2 mg/dL)
[2019-10-31] MEDS ORDERED: METR500T PO (21:58)
[2019-10-31] MEDS ORDERED: ERYT1OIN6 OP (21:58)
[2019-10-31] MEDS ORDERED: metroNIDAZOLE 500 MG TABLET PO ONE (22:30)
[2019-11-02 22:07] LABS: CHLAMYDIA PROBE Negative (Negative)
== END 2019-10-31 22:15 | disposition home or self-care (01) ==
LOC: ER 19:16
DX: N76.0 Acute vaginitis (principal); B96.89 Other specified bacterial agents as the cause of diseases classified elsewhere; H10.31 Unspecified acute conjunctivitis, right eye; F17.210 Nicotine dependence, cigarettes, uncomplicated; F10.20 Alcohol dependence, uncomplicated; Z88.8 Allergy status to other drugs, medicaments and biological substances; Y90.9 Presence of alcohol in blood, level not specified
CPT/HCPCS: 36415; 81001; 81025; 86592; 87491; 87591; 96372; 99283; J0456; J0696; Q0111

== ENCOUNTER 2020-02-11 13:44 | Emergency (ER) | payer SELFPAY ==
[~2020-02-11] VITALS: Ht 160 cm; Wt 47.7 kg
[2020-02-11 13:44] VITALS: BP 141/86
[~2020-02-11 13:44] MED LIST changes: +ERYT1OIN6 OP
[2020-02-11] MEDS ORDERED: SMZ/TMP 800/160MG TABLET. PO ONE (14:15)
[2020-02-11] MEDS ORDERED: CEPHALEXIN 250 MG CAPSULE PO ONE (14:15)
--- NOTE | 2020-02-11 14:15 | PHYS DOC ---
Past History Past Medical History: No Pertinent History Additional Past Medical Histor: Endocarditis, IV drug use Past Surgical History: Tonsillectomy, Tubal ligation Smoking: Cigarettes Alcohol Use: Heavy Drug Use: Amphetamine, Cocaine, Heroin, Marijuana, Methamphetamine, Opiates Social History Narrative: IV drug use General Adult EDM: Chief Complaint: CELLULITIS HPI: HPI: History obtained from patient. Patient is a 40-year-old female with a history of IV heroin abuse who presents with complaint of left ankle pain and swelling. Patient states approximate 24 hours ago while using IV heroin in her left foot she missed her vein. She states she has noted increased redness and swelling to the area since then. She has no increase in warmth tenderness. States it is painful to walk. States it is painful to flex or extend her ankle joint. She states this is happened once before approximately 5 years ago and she almost lost her leg due to infection. Last used IV opiates approximately 12 hours prior to arrival. Denies fevers. Denies vomiting. Denies any pain. Denies any concern for retained needle. Denies chest pain or shortness of breath. Denies back pain. No other complaints. Review of Systems: Review of Systems: Constitutional: Denies fever or chills Eyes: Denies change in visual acuity HENT: Denies nasal congestion or sore throat Respiratory: Denies cough or shortness of breath Cardiovascular: Denies chest pain or edema GI: Denies abdominal pain, nausea, vomiting, bloody stools or diarrhea : Denies dysuria Musculoskeletal: Left ankle pain Integument: Denies rash Neurologic: Denies headache, focal weakness or sensory changes Endocrine: Denies polyuria or polydipsia Lymphatic: Denies swollen glands Psychiatric: Denies depression or anxiety Allergies: Allergies: Allergies Coded Allergies Type Severity Reaction Last Updated Verified I S O L A T I O N *CONTACT* Allergy Unknown 12/09/16 Yes NKMA Allergy Unknown 10/31/19 Yes Physical Exam: PE: Constitutional: Well developed, well nourished, no acute distress, non-toxic appearance. [] HENT: Normocephalic, atraumatic, bilateral external ears normal, oropharynx moist, no oral exudates, nose normal. [] Eyes: PERRLA, EOMI, conjunctiva normal, no discharge. [] Neck: Normal range of motion, no tenderness, supple, no stridor. [] Cardiovascular:Heart rate regular rhythm, no murmur [] Lungs & Thorax: Bilateral breath sounds clear to auscultation [] Abdomen: soft, no tenderness, no masses, no pulsatile masses. [] Skin: Warm, dry, no erythema, no rash. [] Back: No tenderness, no CVA tenderness. [] Extremities: Tenderness palpation of the medial aspect of the left ankle. Overlying redness and warmth noted. Induration appreciated. No crepitus palpated. No palpable areas of fluctuance. Full flexion and extension with some discomfort. +2-4 radial pulse on the left. Left lower extremity compartments soft without crepitus. Neurologic: Alert and oriented X 3, normal motor function, normal sensory function, no focal deficits noted. [] Psychologic: Affect normal, judgement normal, mood normal. [] Current Patient Data: Vital Signs: Vital Signs Date Time Temp Pulse Resp B/P (MAP) Pulse Ox O2 Delivery O2 Flow Rate FiO2 02/11/20 13:44 97.9 85 16 141/86 (104) 100 Room Air EKG: EKG: [] Radiology/Procedures: Radiology/Procedures: [][place] [id number] IMAGING REPORT Signed PATIENT: RIAN SHIN ACCOUNT: [id number] : 1980 LOCATION: ER AGE: 40 SEX: F EXAM STATUS: REG ER ORD. PHYSICIAN: ISMAEL GEORGES DO REASON: redness over medial L ankle. eval for retained needle PROCEDURE: ANKLE LEFT 3V Left ankle 3 views. HISTORY: Redness over medial left ankle 3 views were taken of the left ankle. There is medial soft tissue swelling. There is no fracture or bony destructive process. There is no other acute osseous abnormality. There is no opaque foreign body. IMPRESSION: 1. Soft tissue swelling. 2. No osseous abnormality. 3. No opaque foreign body. Electronically signed by: Manuel Hill MD (02/11/2020 2:31 PM) [facility] DICTATED AND SIGNED BY: MANUEL HILL MD DATE: 02/11/20 2645 CC: PCP,NO; TANQUARY,ISMAEL H DO ~MTH0 0 Heart Score: Risk Factors: Risk Factors: DM, Current or recent (<one month) smoker, HTN, HLP, family history of CAD, obesity. Risk Scores: Score 0 - 3: 2.5% MACE over next 6 weeks - Discharge Home Score 4 - 6: 20.3% MACE over next 6 weeks - Admit for Clinical Observation Score 7 - 10: 72.7% MACE over next 6 weeks - Early Invasive Strategies Course & Med Decision Making: Course & Med Decision Making Pertinent Labs and Imaging studies reviewed. (See chart for details) [] Patient is a 40-year-old female with a history of IV drug abuse who presents with chief complaint of redness and swelling to the medial aspect of her left ankle. She states that she missed a vein while trying to inject IV opiates approximate 24 hours prior to arrival. On exam patient does have clinical cellulitis overlying the left medial malleolus. Overall low suspicion for septic arthritis. She does have full flexion and extension range of motion actively and passively. Given the patient does have history of IV drug use plain film imaging was obtained to rule out retained foreign body soft tissue gas. This was negative. I did engage patient a lengthy discussion regarding her increased risk for deep space infection and possible joint involvement given her IV drug use history. I recommended obtaining laboratory analysis and potentially hospitalization for IV antibiotics as well as further CAT scan imaging. Patient states she would prefer to try oral antibiotics outpatient and does not want any further work-up performed in the emergency department.. I did explain that given her history of IV drug use and history of severe infection in this area the oral antibiotics might not treat her symptoms effectively. Patient does appear to be clinically sober. Alert and oriented x3. She does appear to have basic understanding of her health care needs and potential consequences. I did indicate that I recommend for her to be hospital ized for IV antibioticsand further work-up in the emergency department. At this time she is like to leave AGAINST MEDICAL ADVICE with outpatient antibiotics. She does understand this treatment may be under treating her symptoms. She will be given oral Bactrim and Keflex given presumed history of MRSA. She was able to ambulate emergency department that difficulty. Her vital signs remained stable. She was instructed to return emergency department in 24 to 40 hours have her wound reevaluated. Sooner return precautions discussed and understood. Instructed to follow-up with her primary care physician in the next 2 to 3 days. Stable for discharge home. Dragon Disclaimer: [employer] Disclaimer: This electronic medical record was generated, in whole or in part, using a voice recognition dictation system. Departure Departure: Impression: Primary Impression: Cellulitis Qualified Codes: L03.116 - Cellulitis of left lower limb Additional Impression: IVDU (intravenous drug user) Disposition: 07 AMA/ELOPED/LWBS Condition: STABLE Referrals: PCP,DOROTHY (PCP) MUNIRA DEGROOT MD Patient Instructions: Cellulitis, Septic Arthritis Additional Instructions: Please return emergency department any point should he want to continue treatment or work-up. Please return emergency department the next 1224 hrs. for wound reevaluation. Scripts Cephalexin (KEFLEX) 500 Mg Capsule 500 MG PO QID for cellulitis for 10 Days, #40 TAB Prov: ISMAEL GEORGES DO 02/11/20 Sulfamethoxazole/Trimethoprim (BACTRIM DS TABLET) 1 Each Tablet 1 TAB PO BID for cellulitis for 10 Days, #20 TAB 0 Refills Prov: ISMAEL GEORGES DO 02/11/20 ISMAEL GEORGES DO Feb 11, 2020 14:15
--- NOTE | 2020-02-11 14:33 | RAD ---
Left ankle 3 views. HISTORY: Redness over medial left ankle 3 views were taken of the left ankle. There is medial soft tissue swelling. There is no fracture or bony destructive process. There is no other acute osseous abnormality. There is no opaque foreign body. IMPRESSION: 1. Soft tissue swelling. 2. No osseous abnormality. 3. No opaque foreign body. Electronically signed by: Manuel Hill MD (02/11/2020 2:31 PM) [facility]
[2020-02-11] MEDS ORDERED: SULF1TAB24 PO (15:00)
[2020-02-11] MEDS ORDERED: CEPH-264 PO (15:00)
== END 2020-02-11 15:10 | disposition left against medical advice (07) ==
LOC: ER 13:44
DX: L03.116 Cellulitis of left lower limb (principal); R60.0 Localized edema; M25.572 Pain in left ankle and joints of left foot; F17.210 Nicotine dependence, cigarettes, uncomplicated; F12.90 Cannabis use, unspecified, uncomplicated; F14.90 Cocaine use, unspecified, uncomplicated; F19.90 Other psychoactive substance use, unspecified, uncomplicated; Z98.51 Tubal ligation status; Z88.8 Allergy status to other drugs, medicaments and biological substances
CPT/HCPCS: 73610; 99283

== ENCOUNTER 2020-05-24 19:56 | Emergency (ER) | payer SELFPAY ==
[~2020-05-24] VITALS: Ht 160 cm; Wt 47.7 kg
[2020-05-24 19:56] VITALS: BP 143/89
[~2020-05-24 19:56] MED LIST changes: -CLIN150C14 PO; +CLIN150C15 PO
--- NOTE | 2020-05-24 20:05 | PHYS DOC ---
Past History Past Medical History: No Pertinent History Additional Past Medical Histor: Endocarditis, IV drug use (BROCK DOBBS MD) Past Surgical History: Tonsillectomy, Tubal ligation (BROCK DOBBS MD) Smoking: Cigarettes Alcohol Use: Heavy Drug Use: Amphetamine, Cocaine, Heroin, Marijuana, Methamphetamine, Opiates (BROCK DOBBS MD) General Adult HPI: HPI: Patient is a 40 year old female who presents with above hx and complaints of scraping paint and got in into her rt. eye. See Allan report for details. (BROCK DOBBS MD) HPI: Patient is a 40-year-old female presents to emergency room after getting paint scrapings in her right eye. Patient states she was scraping the wall and felt like something fell into her eye. Patient states that she splashed some water into her eye after it happened still feels like it irritated. Patient denies pain. Patient denies blurry vision. Denies health history. (YUMIKO LÓPEZ APRN) Review of Systems: Review of Systems: Constitutional: Eyes: Complaints of Rt. eye injury. See note by Allan (BROCK DOBBS MD) Review of Systems: Constitutional: Denies fever or chills Eyes: Denies change in visual acuity, irritation to right eye HENT: Denies nasal congestion or sore throat Respiratory: Denies cough or shortness of breath Cardiovascular: Denies chest pain or edema GI: Denies abdominal pain, nausea, vomiting, bloody stools or diarrhea : Denies dysuria Musculoskeletal: Reports right-sided mid back pain Integument: Denies rash Neurologic: Denies headache, focal weakness or sensory changes Endocrine: Denies polyuria or polydipsia Lymphatic: Denies swollen glands Psychiatric: Denies depression or anxiety (YUMIKO LÓPEZ APRN) Allergies: Allergies: Allergies Coded Allergies Type Severity Reaction Last Updated Verified I S O L A T I O N *CONTACT* Allergy Unknown 12/09/16 Yes NKMA Allergy Unknown 10/31/19 Yes (BROCK DOBBS MD) Physical Exam: PE: See Allan note (BROCK DOBBS MD) PE: Constitutional: Well developed, well nourished, no acute distress, non-toxic appearance. [] HENT: Normocephalic, atraumatic, bilateral external ears normal, oropharynx moist, no oral exudates, nose normal. [] Eyes: PERRLA, conjunctiva normal, no discharge. [] Neck: Normal range of motion, no tenderness, supple, no stridor. [] Cardiovascular:Heart rate regular rhythm, no murmur [] Lungs & Thorax: Bilateral breath sounds clear to auscultation [] Abdomen: Bowel sounds normal, soft, no tenderness, no masses, no pulsatile masses. [] Skin: Warm, dry, no erythema, no rash. [] Back: Right-sided tenderness, no CVA tenderness. [] Extremities: No tenderness, no cyanosis, no clubbing, ROM intact, no edema. [] Neurologic: Alert and oriented X 3, normal motor function, normal sensory function, no focal deficits noted. [] Psychologic: Affect normal, judgement normal, mood normal. [] (YUMIKO LÓPEZ APRN) EKG: EKG: [] (BROCK DOBBS MD) Radiology/Procedures: Radiology/Procedures: [] (BROCK DOBBS MD) Heart Score: Risk Factors: Risk Factors: DM, Current or recent (<one month) smoker, HTN, HLP, family history of CAD, obesity. Risk Scores: Score 0 - 3: 2.5% MACE over next 6 weeks - Discharge Home Score 4 - 6: 20.3% MACE over next 6 weeks - Admit for Clinical Observation Score 7 - 10: 72.7% MACE over next 6 weeks - Early Invasive Strategies (BROCK DOBBS MD) C/O Chest Pain: No (YUMIKO LÓPEZ APRN) Course & Med Decision Making: Course & Med Decision Making Pertinent Labs and Imaging studies reviewed. (See chart for details) \See Allan note [] (BROCK DOBBS MD) Course & Med Decision Making Patient was screaming pain at a full wall when she felt like paint scraping spl int to her right eye. Patient denies visual changes. Fluorescein ordered. (YUMIKO LÓPEZ APRN) Dragon Disclaimer: Dragon Disclaimer: This electronic medical record was generated, in whole or in part, using a voice recognition dictation system. (BROCK DOBBS MD) Departure Departure: Referrals: ZARA CHARLES DO (PCP) BROCK DOBBS MD 9, 2021 20:05 YUMIKO LÓPEZ APRN May 24, 2020 20:14
[2020-05-24] MEDS: FLUORESCEIN 1MG EYE STRIP. OD ONE (20:30)
[2020-05-24] MEDS: FLUORESCEIN 1MG EYE STRIP. OU ONE (20:30)
[2020-05-24] MEDS: IV NORMAL SALINE 500ML 500 ML IV ONE (20:30)
[2020-05-24] MEDS: ERYTHROMYCIN 0.5% OPHTH OINTMENT 1GM TUBE. OU ONE (20:31)
[2020-05-24] MEDS: TETRACAINE 0.5% OPHTH SOLUTION 4ML BOTTLE. OU ONE (20:31)
== END 2020-05-24 21:45 | disposition home or self-care (01) ==
LOC: ER 19:56
DX: H57.89 Other specified disorders of eye and adnexa (principal); M54.89 Other dorsalgia; F17.210 Nicotine dependence, cigarettes, uncomplicated; F10.20 Alcohol dependence, uncomplicated; Z91.041 Radiographic dye allergy status; Y90.9 Presence of alcohol in blood, level not specified
CPT/HCPCS: 99283; J7040

== ENCOUNTER 2020-07-17 21:12 | Emergency (ER) | payer SELFPAY ==
[~2020-07-17] VITALS: Ht 157.5 cm; Wt 52.6 kg
[~2020-07-17 21:12] MED LIST changes: +ACYC-12 PO; -ACYC400T PO
--- NOTE | 2020-07-17 21:34 | PHYS DOC ---
Past History Past Medical History: Anxiety, Arthritis, COPD, Fibromyalgia, Hypertension Additional Past Medical Histor: Endocarditis, IV drug use Past Medical History Polysubstance Abuse, Narcotic dependence Past Surgical History: Tonsillectomy, Tubal ligation Additional Past Surgical Histo: right knee, left foot Smoking: Cigarettes Alcohol Use: Rarely Drug Use: Amphetamine, Cocaine, Heroin, Marijuana, Methamphetamine, Opiates General Adult EDM: Chief Complaint: SHORTNESS OF BREATH HPI: HPI: ".. I feel like shit..short of breath.. and hurt everywhere.. some generalize chest pain....hurts to breath...". " I am wheezing.. coughing.. just fell like crap..." Patient is a 40 year old FEMALE who presents with above hx and complaints of chest pain, cough, wheezing, pleuritic complaint and dyspnea. Pt had symptoms the past couple day. Does have history of chronic pain. Patient does have a history of IV drug use. Did use approximate $20 . of Herion IV about 1600 for pain and control of her narcotic cravings. Patient is tachycardic and hypertensive on arrival. Patient has past history of polysubstance abuse with narcotic dependence. 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 Patient does continue to smoke tobacco. Patient denies any specific ill contacts. No recent travel. Has had some subjective feelings of fever and chills. Currently complaining of generalized myalgia arthralgia and malaise. Patient normally follows with Dr. Charles. Review of Systems: Review of Systems: Constitutional: Subjective fever or chills Eyes: Denies change in visual acuity HENT: Denies nasal congestion or sore throat Respiratory: History of a nonproductive cough and shortness of breath Cardiovascular: Complaints of chest pain and tachycardia GI: Generalized abdominal pain , nausea, vomiting, and diarrhea when she does get some narcotics : Denies dysuria Musculoskeletal: Complains of generalized myalgia and joint pain Integument: Denies rash Neurologic: Denies headache, focal weakness or sensory changes Endocrine: Denies polyuria or polydipsia Lymphatic: Denies swollen glands Psychiatric: Denies depression or anxiety Family History: Family History: Noncontributory to presentation Current Medications: Current Meds: See nursing for home meds Allergies: Allergies: Allergies Coded Allergies Type Severity Reaction Last Updated Verified NKMA Allergy Unknown 10/31/19 Yes Physical Exam: PE: Constitutional: Moderately acute distress, ill in appearance. [] HENT: Normocephalic, atraumatic, bilateral external ears normal, oropharynx dry, no oral exudates, nose normal. [] Eyes: PERRLA, EOMI, conjunctiva normal, no discharge. [] Neck: Normal range of motion, no tenderness, supple, no stridor. [] Cardiovascular: Tachycardia heart rate regular rhythm, no murmur [. Bedside] monitor shows a sinus tachycardia Lungs & Thorax: Bilateral breath sounds equal apex with scattered wheezing, rhonchi as crackles on auscultation [] Abdomen: Bowel sounds decreased, soft, no tenderness, no masses, no pulsatile masses. Mild distention. Old surgical scar Skin: Warm, dry, no erythema, no rash. Poor turgor. Old IV track peterson Back: No tenderness, no CVA tenderness. [] Extremities: No tenderness, no cyanosis, no clubbing, ROM intact, no edema. No cording appreciated Neurologic: Alert and oriented X 3, normal motor function, normal sensory function, no focal deficits noted. [] Psychologic: Affect anxious judgement normal, mood normal. [] Current Patient Data: Vital Signs: Vital Signs Date Time Temp Pulse Resp B/P (MAP) Pulse Ox O2 Delivery O2 Flow Rate FiO2 07/17/20 21:20 98.1 90 16 128/76 (93) 100 Room Air EKG: EKG: My interpretation EKG shows a sinus rhythm at 94 bpm. No findings of acute STEMI or contralateral changes [] Radiology/Procedures: Radiology/Procedures: [[address] [address] IMAGING REPORT Signed PATIENT: RIAN SHIN ACCOUNT: [id number] : 1980 LOCATION: ER AGE: 40 SEX: F EXAM STATUS: REG ER ORD. PHYSICIAN: BROCK DOBBS MD REASON: cp PROCEDURE: CHEST PA & LATERAL INDICATION: Reason: cp / Spl. Instructions: / History: COMPARISON: November 2015 FINDINGS: 2 view of chest obtained. Cardiac silhouette unremarkable. Appearance the lungs is similar to prior without a new region of consolidation. IMPRESSION: * No major change from prior. Electronically signed by: Vince Bowman MD (07/18/2020 1:14 AM) [id number] DICTATED AND SIGNED BY: VINCE BOWMAN MD DATE: 07/18/20 0113 CC: BROCK DOBBS MD; ZARA CHARLES DO ~MTH0 0 ][place] [address] IMAGING REPORT Signed PATIENT: RIAN SHIN ACCOUNT: [id number] : 1980 LOCATION: ER AGE: 40 SEX: F EXAM STATUS: REG ER ORD. PHYSICIAN: BROCK DOBBS MD REASON: cp, hx pericarditis, endo carditis, pleuretic cp, OMNI 350, 75ml PROCEDURE: CT ANGIOGRAPHY CHEST INDICATION: Reason: cp, hx pericarditis, endo carditis, pleuretic cp, OMNI 350, 75ml / Spl. Instructions: / History: COMPARISON: November 2015 TECHNIQUE: Axial CT images obtained through the chest. Intravenous contrast utilized. Angiogram 3D images processed per protocol. One or more of the following individualized dose reduction techniques were u tilized for this examination: 1. Automated exposure control; 2. Adjustment of the mA and/or kV according to patient size; 3. Use of iterative reconstruction technique. FINDINGS: Mild cystic changes lungs. There are multifocal masslike opacities in the bilateral lungs. For example within the lingula region measuring up to about 16 mm with surrounding groundglass opacity. At the right upper lung medially there is a masslike opacity within the lung abutting the mediastinum measuring up to about 3 cm. Adj acent interstitial thickening and groundglass opacity. Partially visualized liver appears prominent in size with enlarged spleen partially seen as well. Soft tissue density anterior mediastinum commonly from thymic tissue. There is also some enlarged lymph nodes within the mediastinum. Scattered lymph nodes are seen in the axilla as well. No evidence of thoracic aortic aneurysm with portion of ascending thoracic aorta limited by motion. Enlarged lymph nodes in the mediastinum and hilum. For example right pretracheal region conglomerate measuring up to about 27 x 13 mm. No pulmonary embolus is identified IMPRESSION: No definite pulmonary embolus. Masslike opacities in the bilateral lungs. Could be infectious in nature with alternative causes including inflammatory etiology with neoplastic causes not excluded therefore follow-up will be needed to ensure that this appropriately resolves to exclude neoplasm. Lymphadenopathy at the mediastinum and hilum. Could be reactive or neoplastic and follow-up will be needed to ensure no growth. Electronically signed by: Vince Bowman MD (07/18/2020 1:34 AM) [id number] DICTATED AND SIGNED BY: VINCE BOWMAN MD DATE: 07/18/20118 CC: BROCK DOBBS MD; ZARA CHARLES DO ~MTH0 0 Heart Score: C/O Chest Pain: Yes HEART Score for Chest Pain: HEART Score for Chest Pain Response (Comments) Value History Slighlty/Non-Suspicious 0 ECG Normal 0 Age < 45 0 Risk Factors 1 or 2 Risk Factors 1 Troponin < Normal Limit 0 Total 1 Risk Factors: Risk Factors: DM, Current or recent (<one month) smoker, HTN, HLP, family history of CAD, obesity. Risk Scores: Score 0 - 3: 2.5% MACE over next 6 weeks - Discharge Home Score 4 - 6: 20.3% MACE over next 6 weeks - Admit for Clinical Observation Score 7 - 10: 72.7% MACE over next 6 weeks - Early Invasive Strategies Course & Med Decision Making: Course & Med Decision Making Pertinent Labs and Imaging studies reviewed. (See chart for details) Discussed presentation, testing and treatment plan with . Will accept pt. in transfer to [facility]. Pulmonary consults and cardiology consults. Suspect a possible reactivation of her endocarditis. Consider adding Vanco- Hx of prior MRSA while awaiting transfer once Rocephin in. Biopsy of adenopathy may be needed to make a definitive diagnosis-infectious versus neoplastic versus inflammatory. May need port or pic line for access. Critical care= 90 min. Impression: 1. Chest pain 2. Grossly abnormal CT findings of adenopathy-suspect infectious etiology 3. Elevated leukocytosis 11.9 4. Elevated CRP 80 5. Polysubstance abuse-narcotic dependent [] Dragon Disclaimer: Dragon Disclaimer: This electronic medical record was generated, in whole or in part, using a voice recognition dictation system. Departure Departure: Referrals: ZARA CHARLES DO (PCP) Xuan Disclaimer This chart was dictated in whole or in part using Voice Recognition software in a busy, high-work load, and often noisy Emergency Department environment. It may contain unintended and wholly unrecognized errors or omissions. BROCK DOBBS MD July 17, 2020 21:34
[2020-07-17] MEDS ORDERED: IPRATRPIUM/ALBUTEROL 0.5/2.5MG 3 ML NEBU. NEB ONE (22:00)
[2020-07-17] MEDS ORDERED: IV RINGERS SOLUTION,LACTATED 1,000 ML IV SCH (22:00)
[2020-07-17] MEDS ORDERED: ACETAMINOPHEN 500 MG TABLET PO ONE (22:00)
[2020-07-17] MEDS ORDERED: ASPIRIN CHEWABLE 81 MG TABLET. PO ONE (22:00)
[2020-07-17] MEDS ORDERED: AZITHROMYCIN 250 MG TABLET. PO ONE (22:00)
[2020-07-17] MEDS ORDERED: IOHEXOL 350 MG/ML 100 ML VIAL. IV ONE (22:15)
[2020-07-17] MEDS ORDERED: CONTRAST GIVEN. MC PRN (22:15)
[2020-07-17 22:17] LABS: BASO % 0 % (0-3); EOS # 0.1 x10^3/uL (0.0-0.7); EOS % 1 % (0-3); HEMATOCRIT 45.8 % (36.0-47.0); HEMOGLOBIN 15.1 g/dL (12.0-15.5); LYMPH # 1.7 x10^3/uL (1.0-4.8); LYMPH % 14 % (24-48); MEAN CORPUSCULAR HEMOGLOBIN 29 pg (25-35); MEAN CORPUSCULAR HGB CONC 33 g/dL (31-37); MEAN CORPUSCULAR VOLUME 89 fL (79-100); MONO # 0.7 x10^3/uL (0.0-1.1); MONO % 6 % (0-9); NEUT # 9.5 x10^3uL (1.8-7.7); NEUT % 79 % (31-73); PLATELET COUNT 202 x10^3/uL (140-400); RED BLOOD COUNT 5.16 x10^6/uL (3.50-5.40); RED CELL DISTRIBUTION WIDTH 13.7 % (11.5-14.5); WHITE BLOOD COUNT 11.9 x10^3/uL (4.0-11.0)
[2020-07-17 22:27] LABS: CALCIUM 8.5 mg/dL (8.5-10.1); CREATININE 0.8 mg/dL (0.6-1.0); GFR 79.9; POTASSIUM 3.8 mmol/L (3.5-5.1)
[2020-07-17 22:39] LABS: ALBUMIN 3.5 g/dL (3.4-5.0); DIRECT BILIRUBIN 0.1 mg/dL (0.0-0.2); MAGNESIUM 1.8 mg/dL (1.8-2.4); TOTAL BILIRUBIN 0.5 mg/dL (0.2-1.0); TOTAL PROTEIN 8.2 g/dL (6.4-8.2)
[2020-07-17] MEDS ORDERED: IV NORMAL SALINE 100ML 100 ML ONE (22:46)
[2020-07-18] LABS: BARBITURATES NEG (NEG); BENZODIAZEPINES POS (NEG); CANNABINOIDS POS (NEG); COCAINE NEG (NEG); METHADONE NEG (NEG); OPIATES POS (NEG); PHENCYCLIDINE NEG (NEG)
[2020-07-18 00:01] LABS: AMPHETAMINE/METHAMPHETAMINE POS (NEG)
[2020-07-18 00:03] LABS: BACTERIA,URINE 0 /HPF (0-FEW); BILIRUBIN,URINE NEG (NEG); CLARITY,URINE CLEAR; COLOR,URINE YELLOW; GLUCOSE,URINE NEG (NEG); NITRITE,URINE NEG (NEG); RBC,URINE 0 /HPF (0-2); SQUAMOUS EPITHELIAL CELL,UR FEW /LPF; WBC,URINE OCC /HPF (0-4)
--- NOTE | 2020-07-18 01:16 | RAD ---
INDICATION: Reason: cp / Spl. Instructions: / History: COMPARISON: November 2015 FINDINGS: 2 view of chest obtained. Cardiac silhouette unremarkable. Appearance the lungs is similar to prior without a new region of con solidation. IMPRESSION: * No major change from prior. Electronically signed by: Chele Bowman MD (07/18/2020 1:14 AM) [id number]
--- NOTE | 2020-07-18 01:36 | RAD ---
INDICATION: Reason: cp, hx pericarditis, endo carditis, pleuretic cp, OMNI 350, 75ml / Spl. Instructi ons: / History: COMPARISON: November 2015 TECHNIQUE: Axial CT images obtained through the chest. Intravenous contrast utilized. Angiogram 3D images proce ssed per protocol. One or more of the following individualized dose reduction techniques were utilized for this examinat ion: 1. Automated exposure control; 2. Adjustment of the mA and/or kV according to patient size; 3 . Use of iterative reconstruction technique. FINDINGS: Mild cystic changes lungs. There are multifocal masslike opacities in the bilateral lungs. For example within the lingula region measuring up to about 16 mm with surrounding groundglass opacity. At the right upper lung medially t here is a masslike opacity within the lung abutting the mediastinum measuring up to about 3 cm. Adjac ent interstitial thickening and groundglass opacity. Partially visualized liver appears prominent in size with enlarged spleen partially seen as well. Soft tissue density anterior mediastinum commonly from thymic tissue. There is also some enlarged lymph nodes within the mediastinum. Scattered lymph nodes are seen in the axilla as well. No evidence of thoracic aortic aneurysm with portion of ascending thoracic aorta limited by motion. Enlarged lymph nodes in the mediastinum and hilum. For example right pretracheal region conglomerate measuring up to about 27 x 13 mm. No pulmonary embolus is identified IMPRESSION: No definite pulmonary embolus. Masslike opacities in the bilateral lungs. Could be infectious in nature with alternative causes incl uding inflammatory etiology with neoplastic causes not excluded therefore follow-up will be needed to ensure that this appropriately resolves to exclude neoplasm. Lymphadenopathy at the mediastinum and hilum. Could be reactive or neoplastic and follow-up will be n eeded to ensure no growth. Electronically signed by: Chele Bowamn MD (07/18/2020 1:34 AM) [id number]
--- NOTE | 2020-07-18 02:53 | EKG ---
[facility] [address] [place] [address] Test Date: 2020-07-17 Test Time: 22:47:53 Pat Name: RIAN SHIN Department: Room: Gender: F Dray Driver: VANNA : 1980 Requested By: BROCK DOBBS Order Number: [id number] Reading MD: Measurements Intervals [place] Rate: 94 P: 65 SD: 88 QRS: 72 QRSD: 84 T: 54 QT: 362 QTc: 458 Interpretive Statements SINUS RHYTHM NO SPECIFIC ECG ABNORMALITIES RI6.02 Compared to ECG 07/17/2020 22:44:45 No significant changes
[2020-07-18] MEDS ORDERED: MORPHINE SULFATE 10 MG/ML SYRINGE. SQ ONE (04:15)
[2020-07-18 07:18] VITALS: BP 118/80
== END 2020-07-18 07:52 ==
LOC: ER 21:12
DX: R07.9 Chest pain, unspecified (principal); R93.1 Abnormal findings on diagnostic imaging of heart and coronary circulation; D72.829 Elevated white blood cell count, unspecified; R79.82 Elevated C-reactive protein (CRP); F19.10 Other psychoactive substance abuse, uncomplicated; F11.20 Opioid dependence, uncomplicated; R10.84 Generalized abdominal pain; R11.2 Nausea with vomiting, unspecified; R19.7 Diarrhea, unspecified; F41.9 Anxiety disorder, unspecified; M19.90 Unspecified osteoarthritis, unspecified site; J44.9 Chronic obstructive pulmonary disease, unspecified; M79.7 Fibromyalgia; I10 Essential (primary) hypertension; F17.210 Nicotine dependence, cigarettes, uncomplicated; F15.10 Other stimulant abuse, uncomplicated; Z20.822 Contact with and (suspected) exposure to COVID-19
CPT/HCPCS: 36415; 71046; 71275; 80048; 80076; 80307; 81001; 81025; 82550; 83690; 83735; 83880; 84443; 84484; 85025; 85379; 85610; 85730; 86140; 87040; 93005; 94640; 96365; 96372; 99285; C9803; J0696; J2270; J7120; Q9967; U0003; U0005

== ENCOUNTER 2021-04-22 17:53 | Emergency (ER) | payer SELFPAY ==
[~2021-04-22] VITALS: Ht 157.5 cm; Wt 47.0 kg
[~2021-04-22 17:53] MED LIST changes: -CLIN150C15 PO; +CLIN150C16 PO
--- NOTE | 2021-04-22 18:23 | PHYS DOC ---
Past History Past Medical History: Anxiety, Arthritis, COPD, Fibromyalgia, Hypertension Additional Past Medical Histor: Endocarditis, IV drug use Past Surgical History: Tonsillectomy, Tubal ligation Additional Past Surgical Histo: right knee, left foot Smoking: Cigarettes Alcohol Use: Rarely Drug Use: Amphetamine, Cocaine, Heroin, Marijuana, Methamphetamine, Opiates Adult General Chief Complaint Chief Complaint: KNEE INJURY HPI HPI Patient is 41-year-old female presents with right knee pain. States that she had something similar a few years ago and needed orthopedic surgery to intervene and clean out her knee. Patient is an IV drug user and last injected heroin today in the left arm. States her knee pain started about 3 days ago and began to swell some pain in the knee, 7 out of 10, dull and achy in nature. Denies any recent traumas, travels, fevers, chest pain, shortness of breath, abdominal pain, nausea, vomiting, diarrhea. Denies any other joint involvement. Denies any vaginal bleeding, discharge or pain. Review of Systems Review of Systems Review of systems otherwise unremarkable except noted in HPI Allergies Allergies Allergies Coded Allergies Type Severity Reaction Last Updated Verified NKMA Allergy Unknown 10/31/19 Yes Physical Exam Physical Exam Constitutional: Well developed, well nourished, no acute distress, non-toxic appearance. [] HENT: Normocephalic, atraumatic, Eyes:conjunctiva normal, no discharge. [] Cardiovascular:Heart rate regular rhythm, no murmur [] Lungs & Thorax: No respiratory distress Skin: Warm, dry, no erythema, no rash. [] Back: No tenderness, Extremities: Neurovascular exam intact, right knee generally warm, with some obvious generalized swelling, but no erythema, bruising or deformities noted. Range of motion intact with only mild pain on passive and active motion. Bedside ultrasound showed some superficial fluid but no fluid inside the joint capsule. Neurologic: Alert and oriented X 3, able to sit, stand and walk without issue, no focal deficits noted. [] Psychologic: Affect normal, judgement normal, mood normal. [] Current Patient Data Vital Signs Vital Signs Date Time Temp Pulse Resp B/P (MAP) Pulse Ox O2 Delivery O2 Flow Rate FiO2 04/22/21 18:01 98.5 99 18 127/73 (91) 99 Room Air EKG EKG [] Radiology/Procedures Radiology/Procedures [] Heart Score C/O Chest Pain: No Risk Factors: Risk Factors: DM, Current or recent (<one month) smoker, HTN, HLP, family h istory of CAD, obesity. Risk Scores: Risk Factors: DM, Current or recent (<one month) smoker, HTN, HLP, family history of CAD, obesity. Course & Med Decision Making Course & Med Decision Making Patient is a 41-year-old female who presents with right knee pain and swelling Vital signs notable for borderline tachycardia. Physical exam noted above. Given ice pack, Tylenol and ibuprofen. Discussed findings with patient including bursitis versus septic bursitis versus septic joint. Exam suggestive more of a bursitis given no systemic features and only superficial fluid on bedside ultrasound. Discussed treatment plan, things to look out for, and advised to follow-up on Saturday with the primary care physician to set up reevaluation. Discussed symptom treatment at home. Given patient's history of IV drug use started on antibiotics. Gave return precautions to the ED. Patient grateful, verbalized understanding and agreed with plan of discharge [] Dragon Disclaimer Dragon Disclaimer This electronic medical record was generated, in whole or in part, using a voice recognition dictation system. Departure Departure: Impression: Primary Impression: Bursitis Disposition: HOME / SELF CARE / HOMELESS Condition: GOOD Referrals: ZARA CHARLES DO (PCP) Patient Instructions: Bursitis, RICE - Routine Care for Injuries Additional Instructions: Thank you for coming into the emergency department tonight and allowing us to take care of you. Please read the attached information carefully to go back over things we discussed. Please start a Tylenol, ibuprofen and ice regimen as we discussed. Please take your antibiotics as prescribed and until gone. As we also discussed is very important you follow-up with your primary care physician on Saturday to discuss your ED visit and set up an appointment in the next week or so for reevaluation. You were given contact information for local primary care physicians and the local resource packet of free clinics. Please come back to the emergency department immediately with new or concerning symptoms as we discussed. Scripts Clindamycin Hcl (CLINDAMYCIN HCL) 300 Mg Capsule 1 CAP PO QID for wound for 7 Days, #28 CAP Prov: MARIA ISABEL MAN MD 04/22/21 MARIA ISABEL MAN MD Apr 22, 2021 18:23
[2021-04-22] MEDS ORDERED: ACETAMINOPHEN 500 MG TABLET PO ONE (18:45)
[2021-04-22] MEDS ORDERED: LIDOCAINE 1% PF 30 ML VIAL. INJ ONE (18:45)
[2021-04-22] MEDS ORDERED: LIDOCAINE 1% Multi-Dose 20 ML VIAL. ONE (18:45)
[2021-04-22] MEDS ORDERED: CLIN-95 PO (19:13)
[2021-04-22] MEDS ORDERED: CLINDAMYCIN HCL 150 MG CAPSULE PO ONE (19:30)
[2021-04-22] MEDS ORDERED: IBUPROFEN 400 MG TABLET. PO ONE (19:30)
[2021-04-22] MEDS ORDERED: DEXAMETHASONE 4 MG TABLET PO ONE ×2 (19:30→20:00)
[2021-04-22 19:48] VITALS: BP 122/68
[2021-04-22 20:00] LABS: BILIRUBIN,URINE NEG (NEG); CLARITY,URINE CLEAR; COLOR,URINE YELLOW; GLUCOSE,URINE NEG (NEG)
[2021-04-22 20:01] LABS: BACTERIA,URINE 0 /HPF (0-FEW); NITRITE,URINE NEG (NEG); RBC,URINE OCC /HPF (0-2); SQUAMOUS EPITHELIAL CELL,UR MOD /LPF; UROBILINOGEN,URINE 0.2 mg/dL (0.2 mg/dL); WBC,URINE OCC /HPF (0-4)
== END 2021-04-22 19:30 | disposition home or self-care (01) ==
LOC: ER 17:53
DX: M71.561 Other bursitis, not elsewhere classified, right knee (principal); F41.9 Anxiety disorder, unspecified; M19.90 Unspecified osteoarthritis, unspecified site; J44.9 Chronic obstructive pulmonary disease, unspecified; M79.7 Fibromyalgia; I10 Essential (primary) hypertension; F17.210 Nicotine dependence, cigarettes, uncomplicated
CPT/HCPCS: 81001; 81025; 99284; J8540